=== PATIENT | female | born 1985 | race Caucasian/White ===

== ENCOUNTER → 2016-11-08 | Outpatient (CLI) | payer OTHER ==
[~2016-11-08] MED LIST: PRENTAB55 PO; VITAPRTA PO
[2016-11-08 18:15] LABS: BASO % 0.7 % (0.0-1.0); EOS # 0.2 K/mm3 (0.0-0.50); EOS % 2.6 % (0.0-3.0); LARGE UNSTAINED CELL # 0.2 K/mm3 (0.0-0.4); LYMPH # 2.7 K/mm3 (1.5-6.5); LYMPH % 33.2 % (24.0-44.0); MEAN CORPUSCULAR HEMOGLOBIN 30.7 pg (27.0-33.0); MEAN CORPUSCULAR HGB CONC 33.7 g/dl (32.0-36.5); MONO # 0.4 K/mm3 (0.0-0.8); MONO % 5.5 % (0.0-5.0); NEUTROPHILS # 4.5 K/mm3 (1.8-7.7); NEUTROPHILS % 55.1 % (36.0-66.0); PLATELET COUNT, AUTOMATED 305 k/mm3 (150-450); WHITE BLOOD COUNT 8.1 K/mm3 (4.0-10.0)
[2016-11-08 18:58] LABS: ERYTHROCYTE SEDIMENTATION RATE 5 mm/hr (0-20)
[2016-11-11 00:06] LABS: Lyme Disease IgG Ab 18 kDa Ban Absent (.); Lyme Disease IgG Ab 23 kDa Ban Absent (.); Lyme Disease IgG Ab 28 kDa Ban Absent (.); Lyme Disease IgG Ab 30 kDa Ban Absent (.); Lyme Disease IgG Ab 39 kDa Ban Absent (.); Lyme Disease IgG Ab 41 kDa Ban Absent (.); Lyme Disease IgG Ab 45 kDa Ban Absent (.); Lyme Disease IgG Ab 58 kDa Ban Absent (.); Lyme Disease IgG Ab 66 kDa Ban Absent (.); Lyme Disease IgG Ab 93 kDa Ban Absent (.); Lyme Disease IgG West Blot Int Negative (.); Lyme Disease IgG/IgM Antibodie <0.91 ISR (0.00-0.90); Lyme Disease IgM Ab 23 kDa Ban Present (.); Lyme Disease IgM Ab 39 kDa Ban Absent (.); Lyme Disease IgM Ab 41 kDa Ban Absent (.); Lyme Disease IgM Ab Quantitati 0.85 index (0.00-0.79); Lyme Disease IgM West Blot Int Negative (.)
== END ==
LOC: M WUC 12:56
PROVIDERS: ATTEND Orthopaedic Surgery
DX: M25.561 Pain in right knee (principal)

== ENCOUNTER 2016-11-27 16:11 | Emergency (ER) | payer OTHER ==
[2016-11-27] MEDS ORDERED: ALBUTEROL 90 MCG/ACT 8GM HFA INHALER As Ordered ONE (17:16)
--- NOTE | 2016-11-27 17:56 | REP ---
PA and lateral chest: Comparison is 04/24/2010. The lung neff are clear. The cardiac size is normal The justo, mediastinum, and bony thorax are unremarkable. Impression: Negative PA and lateral chest. Signed by Jan Benz MD 11/27/2016 05:47 P
--- NOTE | 2016-11-27 17:56 | EDDOCDS ---
Nurse's Notes [facility] Name: Lou Chappell Age: 31 yrs Sex: Female : 1985 Arrival Date: 11/27/2016 Time: 16:11 Bed 13 Private MD: Segundo Montes Diagnosis: Acute upper respiratory infection, unspecified Presentation: 11/27 16:27 Presenting complaint: Patient states: Congestion and productive cough for yellow/green jo3 sputum. Been ill for approximately 1 week. Adult Sepsis Screening: The patient does not have new or worsening altered mentation. Patient's respiratory rate is less than 22. Systolic blood pressure is greater than 100. Patient has a qSOFA score of 0- Negative Sepsis Screen. Suicide/Homicide risk assessment- the patient denies having any suicidal and/or homicidal ideations and does not present with any other emotional, behavioral or mental health complaints. Status: Patient is not a visitor services coordinator or dependent. Transition of care: patient was not received from another setting of care. 16:27 Acuity: HUNG Level 3 jo3 16:27 Method Of Arrival: Walkin/Carried/Asstd jo3 Triage Assessment: 16:29 General: Appears in no apparent distress, Behavior is appropriate for age, cooperative. jo3 HIV screening NA for this visit Offered previously. Neurological: No deficits noted. Level of Consciousness is awake, alert, Oriented to person, place, time. Respiratory: Airway is patent Respiratory effort is even, unlabored. Derm: Skin is pink, warm & dry. 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 none - PMHx: Chronic Back pain; Migraine Headaches; - PSHx: ; Tubal ligation; plastic surgery to right eye; - Social history: Smoking status: Patient states was never smoker of tobacco. No barriers to communication noted, The patient speaks fluent Venezuelan, Speaks appropriately for age. - Family history: Not pertinent. - : The pt / caregiver states he / she is not on anticoagulants. Home medication list is obtained from the patient. - Exposure Risk Screening:: None identified. Screenin:49 Infection Control. gr2 17:54 Screening information is obtained from the patient. Fall risk: No risks identified. dsf Assistance ADL's: requires no assistance with activities of daily living. Abuse/DV Screen: The patient / caregiver reports he/she is: not in a situation that causes fear, pain or injury. Nutritional screening: No deficits noted. Advance Directives: Currently, there is no health care proxy. home support is adequate. Assessment: 16:59 Adult Sepsis Screening: The patient does not have new or worsening altered mentation. dsf Patient's respiratory rate is less than 22. Systolic blood pressure is greater than 100. Patient has a qSOFA score of 0- Negative Sepsis Screen. General: Appears in no apparent distress, comfortable, Behavior is appropriate for age, cooperative. Pain: Denies pain. Neurological: Level of Consciousness is awake, alert, Oriented to person, place, time. EENT: Reports nasal congestion since 1 week ago. Cardiovascular: Capillary refill < 3 seconds Heart tones S1 S2 present. Respiratory: Airway is patent Respiratory effort is even, unlabored, Respiratory pattern is regular, symmetrical, Breath sounds are clear bilaterally. Reports shortness of breath on exertion since 2 days ago cough that is productive, since 3 days ago. GI: Abdomen is non- distended Bowel sounds present X 4 quads. Abd is soft and non tender X 4 quads. Derm: Skin is pink, warm & dry. 17:54 General: Appears in no apparent distress, comfortable, Behavior is appropriate for age, dsf cooperative. Pain: Denies pain. Neurological: Level of Consciousness is awake, alert. Cardiovascular: Capillary refill < 3 seconds. Respiratory: Airway is patent Respiratory effort is even, unlabored, Respiratory pattern is regular, symmetrical. Derm: Skin is pink, warm & dry. Vital Signs: 16:13 BP 129 / 85; Pulse 81; Resp 18 S; Temp 98.4(O); Pulse Ox 97% on R/A; Weight 59.87 kg gr2 (R); Height 5 ft. 0 in. (152.40 cm) (R); Pain 4/10; 17:54 BP 120 / 74; Pulse 70; Resp 16; Temp 98.6(O); Pulse Ox 99% on R/A; Pain 0/10; dsf 16:13 Body Mass Index 25.78 (59.87 kg, 152.40 cm) gr2 Vitals: 16:13 Log In Time: November 27, 2016 at 16:13. gr2 ED Course: 16:12 Patient visited by Danny Macias. gr2 16:12 Segundo Montes is Private Physician. gr2 16:12 Patient moved to Waiting gr2 16:15 Patient visited by Danny Macias. gr2 16:15 Patient moved to Pre RCE gr2 16:28 Triage Initiated jo3 16:30 Patient visited by Lay Carreno,KAVON. jo3 16:49 Patient visited by Danny Macias. gr2 16:54 Stevie Osullivan MD is Attending Physician. br1 16:54 Patient moved to 13 kr3 17:00 Patient visited by Alpa Hartman RN. dsf 17:13 Patient visited by Stevie Osullivan MD. br1 17:24 [facility] Payment Agreement was scanned into [employer] and attached to record. gb 17:47 Patient visited by Stevie Osullivan MD. br1 17:49 Segundo Montes is Referral Physician. br1 17:54 The patient / caregiver is instructed regarding the plan of care and ED course. dsf 17:54 No IV's were initiated during this patient's visit. No procedures done that require dsf assistance. Administered Medications: 17:17 Drug: Ventolin 2 puffs [Ventolin HFA 90 mcg/actuation aerosol inhaler (2 puffs)] Route: dsf Inhalation; Order Results: There are currently no results for this order. Outcome: 17:49 Discharge ordered by Provider. br1 17:54 Discharge Assessment: Patient awake, alert and oriented x 3. No cognitive and/or dsf functional deficits noted. Patient verbalized understanding of disposition instructions. patient administered narcotics - no. The following High Risk Discharge criteria are identified: None. Discharged to home ambulatory. Condition: stable. Discharge instructions given to patient, Instructed on discharge instructions, follow up and referral plans. Demonstrated understanding of instructions, Pt was receptive of discharge instructions/ teaching. No special radiology studies were completed. Property sent home with patient. 17:55 Patient left the ED. dsf Signatures: Marisol Jeong, Reg Reg gb Quita Torrez,RN RN kr3 Lay Carreno,RN RN mindy3 Stevie Osullivan MD MD br1 Alpa Hartman RN RN Danny Agrawal gr2 [place]
--- NOTE | 2016-11-27 17:56 | EDDOCDS ---
Physician Documentation [facility] Name: Lou Chappell Age: 31 yrs Sex: Female : 1985 Arrival Date: 11/27/2016 Time: 16:11 Bed 13 Private MD: Segundo Montes Disposition: 11/27/16 17:49 Discharged to Home/Self Care. Impression: Acute upper respiratory infection, unspecified. - Condition is Stable. - Discharge Instructions: Upper Respiratory Infection, Adult, Cough, Adult. - Medication Reconciliation, Local Pharmacy Hours form. - Follow up: Segundo Montes; When: 2 - 3 days; Reason: Recheck today's complaints. - Problem is new. - Symptoms have improved. - Notes: You were seen in the ED for cough, congestion and shortness of breath concerning for upper respiratory infection. Chest Xray showed no other acute findings at this time. You may use the albuterol inhaler as needed for any wheezing or shortness of breath, along with an over the counter cough suppressant such as a Robitussin as needed. Call your primary doctor to arrange to be seen in the office for recheck this week as well, and return to the ED for any chest pain, trouble breathing, fever, loss of consciousness or any other concerns. Historical: - Allergies: Augmentin (Vomit, Hives, shortness of breath); PENICILLINS (Vomit, Hives, shortness of breath); Reglan (Vomit, Hives); SULFA (SULFONAMIDES) (Vomit, Hives, shortness of breath); Toradol (Vomit, Hives, shortness of breath); - Home Meds: 1. none - PMHx: Chronic Back pain; Migraine Headaches; - PSHx: ; Tubal ligation; plastic surgery to right eye; - Social history: Smoking status: Patient states was never smoker of tobacco. No barriers to communication noted, The patient speaks fluent Khmer, Speaks appropriately for age. - Family history: Not pertinent. - : The pt / caregiver states he / she is not on anticoagulants. Home medication list is obtained from the patient. - Exposure Risk Screening:: None identified. 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 0 in. (152.40 cm) (R); Pain 4/10; 17:54 BP 120 / 74; Pulse 70; Resp 16; Temp 98.6(O); Pulse Ox 99% on R/A; Pain 0/10; dsf 16:13 Body Mass Index 25.78 (59.87 kg, 152.40 cm) gr2 MDM: 16:56 Chest, 2 View (pa\E\lat) Ordered. EDMS 17:14 Ventolin Inhaler 2 puffs Inhalation once ordered. br1 17:19 Financial registration complete. 17:24 [facility] Payment Agreement was scanned into [email or web address] and attached to record. gb Administered Medications: 17:17 Drug: Ventolin 2 puffs [Ventolin HFA 90 mcg/actuation aerosol inhaler (2 puffs)] Route: dsf Inhalation; Signatures: Dispatcher MedHost EDMS Marisol Jeong, Reg Reg Lay Carreno,RN RN jo3 Stevie Osullivan MD MD br1 Alpa Hartman RN RN dsf The chart was reviewed and I authenticate all verbal orders and agree with the evaluation and treatment provided.Attachments: 17:24 [facility] Payment Agreement gb MTDD
--- NOTE | 2016-11-29 18:57 | EDDOCDS ---
Physician Documentation [facility] Name: Lou Chappell Age: 31 yrs Sex: Female : 1985 Arrival Date: 11/27/2016 Time: 16:11 Bed 13 Private MD: Segundo Montes Disposition: 11/27/16 17:49 Discharged to Home/Self Care. Impression: Acute upper respiratory infection, unspecified. - Condition is Stable. - Discharge Instructions: Upper Respiratory Infection, Adult, Cough, Adult. - Medication Reconciliation, Local Pharmacy Hours form. - Follow up: Segundo Montes; When: 2 - 3 days; Reason: Recheck today's complaints. - Problem is new. - Symptoms have improved. - Notes: You were seen in the ED for cough, congestion and shortness of breath concerning for upper respiratory infection. Chest Xray showed no other acute findings at this time. You may use the albuterol inhaler as needed for any wheezing or shortness of breath, along with an over the counter cough suppressant such as a Robitussin as needed. Call your primary doctor to arrange to be seen in the office for recheck this week as well, and return to the ED for any chest pain, trouble breathing, fever, loss of consciousness or any other concerns. Historical: - Allergies: Augmentin (Vomit, Hives, shortness of breath); PENICILLINS (Vomit, Hives, shortness of breath); Reglan (Vomit, Hives); SULFA (SULFONAMIDES) (Vomit, Hives, shortness of breath); Toradol (Vomit, Hives, shortness of breath); - Home Meds: 1. none - PMHx: Chronic Back pain; Migraine Headaches; - PSHx: ; Tubal ligation; plastic surgery to right eye; - Social history: Smoking status: Patient states was never smoker of tobacco. No barriers to communication noted, The patient speaks fluent Turkish, Speaks appropriately for age. - Family history: Not pertinent. - : The pt / caregiver states he / she is not on anticoagulants. Home medication list is obtained from the patient. - Exposure Risk Screening:: None identified. 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 0 in. (152.40 cm) (R); Pain 4/10; 17:54 BP 120 / 74; Pulse 70; Resp 16; Temp 98.6(O); Pulse Ox 99% on R/A; Pain 0/10; dsf 16:13 Body Mass Index 25.78 (59.87 kg, 152.40 cm) gr2 MDM: 16:56 Chest, 2 View (pa\E\lat) Ordered. EDMS 17:14 Ventolin Inhaler 2 puffs Inhalation once ordered. br1 17:19 Financial registration complete. 17:24 [facility] Payment Agreement was scanned into [employer] and attached to record. gb 22:15 T-Sheet-- Draft Copy was scanned into [employer] and attached to record. klr Administered Medications: 17:17 Drug: Ventolin 2 puffs [Ventolin HFA 90 mcg/actuation aerosol inhaler (2 puffs)] Route: dsf Inhalation; Signatures: Dispatcher MedHost EDMS Marisol Jeong, Reg Reg gb Lay CarrenoRN RN Stevie Boyd MD MD br1 Alpa Hartman RN RN dsf Redder, Kathie klr The chart was reviewed and I authenticate all verbal orders and agree with the evaluation and treatment provided.Attachments: 17:24 [facility] Payment Agreement gb 22:15 T-Sheet-- Draft Copy klr Chart Complete MTDD
--- NOTE | 2016-11-29 18:57 | EDDOCDS ---
Nurse's Notes [facility] Name: Lou Chappell Age: 31 yrs Sex: Female : 1985 Arrival Date: 11/27/2016 Time: 16:11 Bed 13 Private MD: Segundo Montes Diagnosis: Acute upper respiratory infection, unspecified Presentation: 11/27 16:27 Presenting complaint: Patient states: Congestion and productive cough for yellow/green jo3 sputum. Been ill for approximately 1 week. Adult Sepsis Screening: The patient does not have new or worsening altered mentation. Patient's respiratory rate is less than 22. Systolic blood pressure is greater than 100. Patient has a qSOFA score of 0- Negative Sepsis Screen. Suicide/Homicide risk assessment- the patient denies having any suicidal and/or homicidal ideations and does not present with any other emotional, behavioral or mental health complaints. Status: Patient is not a environmental service aide or dependent. Transition of care: patient was not received from another setting of care. 16:27 Acuity: HUNG Level 3 jo3 16:27 Method Of Arrival: Walkin/Carried/Asstd jo3 Triage Assessment: 16:29 General: Appears in no apparent distress, Behavior is appropriate for age, cooperative. jo3 HIV screening NA for this visit Offered previously. Neurological: No deficits noted. Level of Consciousness is awake, alert, Oriented to person, place, time. Respiratory: Airway is patent Respiratory effort is even, unlabored. Derm: Skin is pink, warm & dry. 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 none - PMHx: Chronic Back pain; Migraine Headaches; - PSHx: ; Tubal ligation; plastic surgery to right eye; - Social history: Smoking status: Patient states was never smoker of tobacco. No barriers to communication noted, The patient speaks fluent Icelandic, Speaks appropriately for age. - Family history: Not pertinent. - : The pt / caregiver states he / she is not on anticoagulants. Home medication list is obtained from the patient. - Exposure Risk Screening:: None identified. Screenin:49 Infection Control. gr2 17:54 Screening information is obtained from the patient. Fall risk: No risks identified. dsf Assistance ADL's: requires no assistance with activities of daily living. Abuse/DV Screen: The patient / caregiver reports he/she is: not in a situation that causes fear, pain or injury. Nutritional screening: No deficits noted. Advance Directives: Currently, there is no health care proxy. home support is adequate. Assessment: 16:59 Adult Sepsis Screening: The patient does not have new or worsening altered mentation. dsf Patient's respiratory rate is less than 22. Systolic blood pressure is greater than 100. Patient has a qSOFA score of 0- Negative Sepsis Screen. General: Appears in no apparent distress, comfortable, Behavior is appropriate for age, cooperative. Pain: Denies pain. Neurological: Level of Consciousness is awake, alert, Oriented to person, place, time. EENT: Reports nasal congestion since 1 week ago. Cardiovascular: Capillary refill < 3 seconds Heart tones S1 S2 present. Respiratory: Airway is patent Respiratory effort is even, unlabored, Respiratory pattern is regular, symmetrical, Breath sounds are clear bilaterally. Reports shortness of breath on exertion since 2 days ago cough that is productive, since 3 days ago. GI: Abdomen is non- distended Bowel sounds present X 4 quads. Abd is soft and non tender X 4 quads. Derm: Skin is pink, warm & dry. 17:54 General: Appears in no apparent distress, comfortable, Behavior is appropriate for age, dsf cooperative. Pain: Denies pain. Neurological: Level of Consciousness is awake, alert. Cardiovascular: Capillary refill < 3 seconds. Respiratory: Airway is patent Respiratory effort is even, unlabored, Respiratory pattern is regular, symmetrical. Derm: Skin is pink, warm & dry. Vital Signs: 16:13 BP 129 / 85; Pulse 81; Resp 18 S; Temp 98.4(O); Pulse Ox 97% on R/A; Weight 59.87 kg gr2 (R); Height 5 ft. 0 in. (152.40 cm) (R); Pain 4/10; 17:54 BP 120 / 74; Pulse 70; Resp 16; Temp 98.6(O); Pulse Ox 99% on R/A; Pain 0/10; dsf 16:13 Body Mass Index 25.78 (59.87 kg, 152.40 cm) gr2 Vitals: 16:13 Log In Time: November 27, 2016 at 16:13. gr2 ED Course: 16:12 Patient visited by Danny Macias. gr2 16:12 Segundo Montes is Private Physician. gr2 16:12 Patient moved to Waiting gr2 16:15 Patient visited by Danny Macias. gr2 16:15 Patient moved to Pre RCE gr2 16:28 Triage Initiated jo3 16:30 Patient visited by Lay Carreno,KAVON. jo3 16:49 Patient visited by Danny Macias. gr2 16:54 Stevie Osullivan MD is Attending Physician. br1 16:54 Patient moved to 13 kr3 17:00 Patient visited by Alpa Hartman RN. dsf 17:13 Patient visited by Stevie Osullivan MD. br1 17:24 [facility] Payment Agreement was scanned into [employer] and attached to record. gb 17:47 Patient visited by Stevie Osullivan MD. br1 17:49 Segundo Montes is Referral Physician. br1 17:54 The patient / caregiver is instructed regarding the plan of care and ED course. dsf 17:54 No IV's were initiated during this patient's visit. No procedures done that require dsf assistance. 18:09 Chest, 2 View (pa\E\lat) Returned. EDMS 22:15 T-Sheet-- Draft Copy was scanned into [employer] and attached to record. klr Administered Medications: 17:17 Drug: Ventolin 2 puffs [Ventolin HFA 90 mcg/actuation aerosol inhaler (2 puffs)] Route: dsf Inhalation; Order Results: Radiology Order: Chest, 2 View (pa\E\lat) Test: Chest, 2 View (pa\E\lat) REASON FOR EXAMINATION: Cough; PA and lateral chest:; ; Comparison is 04/24/2010.; ; The lung neff are clear. The cardiac size is normal; ; The justo, mediastinum, and bony thorax are unremarkable.; ; Impression:; ; Negative PA and lateral chest.; ; ; Signed by; Jan Benz MD 11/27/2016 05:47 P; Outcome: 17:49 Discharge ordered by Provider. br1 17:54 Discharge Assessment: Patient awake, alert and oriented x 3. No cognitive and/or dsf functional deficits noted. Patient verbalized understanding of disposition instructions. patient administered narcotics - no. The following High Risk Discharge criteria are identified: None. Discharged to home ambulatory. Condition: stable. Discharge instructions given to patient, Instructed on discharge instructions, follow up and referral plans. Demonstrated understanding of instructions, Pt was receptive of discharge instructions/ teaching. No special radiology studies were completed. Property sent home with patient. 17:55 Patient left the ED. dsf Signatures: Dispatcher MedHost EDMS Marisol Jeong, Reg Reg Quita Villalpando,RN RN enoch3 Lay Carreno,RN RN mindy3 Stevie Osullivan MD MD br1 Alpa Hartman RN RN dsf Danny Macias 2 Inna Carty Chart Complete [place]
--- NOTE | 2016-11-29 18:57 | EDDOCDS ---
Physician Documentation [facility] Name: Lou Chappell Age: 31 yrs Sex: Female : 1985 Arrival Date: 11/27/2016 Time: 16:11 Bed 13 Private MD: Segundo Montes Disposition: 11/27/16 17:49 Discharged to Home/Self Care. Impression: Acute upper respiratory infection, unspecified. - Condition is Stable. - Discharge Instructions: Upper Respiratory Infection, Adult, Cough, Adult. - Medication Reconciliation, Local Pharmacy Hours form. - Follow up: Segundo Montes; When: 2 - 3 days; Reason: Recheck today's complaints. - Problem is new. - Symptoms have improved. - Notes: You were seen in the ED for cough, congestion and shortness of breath concerning for upper respiratory infection. Chest Xray showed no other acute findings at this time. You may use the albuterol inhaler as needed for any wheezing or shortness of breath, along with an over the counter cough suppressant such as a Robitussin as needed. Call your primary doctor to arrange to be seen in the office for recheck this week as well, and return to the ED for any chest pain, trouble breathing, fever, loss of consciousness or any other concerns. Historical: - Allergies: Augmentin (Vomit, Hives, shortness of breath); PENICILLINS (Vomit, Hives, shortness of breath); Reglan (Vomit, Hives); SULFA (SULFONAMIDES) (Vomit, Hives, shortness of breath); Toradol (Vomit, Hives, shortness of breath); - Home Meds: 1. none - PMHx: Chronic Back pain; Migraine Headaches; - PSHx: ; Tubal ligation; plastic surgery to right eye; - Social history: Smoking status: Patient states was never smoker of tobacco. No barriers to communication noted, The patient speaks fluent Japanese, Speaks appropriately for age. - Family history: Not pertinent. - : The pt / caregiver states he / she is not on anticoagulants. Home medication list is obtained from the patient. - Exposure Risk Screening:: None identified. 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 0 in. (152.40 cm) (R); Pain 4/10; 17:54 BP 120 / 74; Pulse 70; Resp 16; Temp 98.6(O); Pulse Ox 99% on R/A; Pain 0/10; dsf 16:13 Body Mass Index 25.78 (59.87 kg, 152.40 cm) gr2 MDM: 16:56 Chest, 2 View (pa\E\lat) Ordered. EDMS 17:14 Ventolin Inhaler 2 puffs Inhalation once ordered. br1 17:19 Financial registration complete. 17:24 [facility] Payment Agreement was scanned into [employer] and attached to record. gb 22:15 T-Sheet-- Draft Copy was scanned into [employer] and attached to record. klr Administered Medications: 17:17 Drug: Ventolin 2 puffs [Ventolin HFA 90 mcg/actuation aerosol inhaler (2 puffs)] Route: dsf Inhalation; Signatures: Dispatcher MedHost EDMS Marisol Jeong, Reg Reg gb Lay CarrenoRN RN Stevie Boyd MD MD br1 Alpa Hartman RN RN dsf Redder, Kathie klr The chart was reviewed and I authenticate all verbal orders and agree with the evaluation and treatment provided.Attachments: 17:24 [facility] Payment Agreement gb 22:15 T-Sheet-- Draft Copy klr Chart Complete MTDD
== END 2016-11-27 17:55 | disposition home or self-care (01) ==
LOC: M ED 16:11
DX: J06.9 Acute upper respiratory infection, unspecified (principal); G89.29 Other chronic pain; M54.9 Dorsalgia, unspecified; G43.909 Migraine, unspecified, not intractable, without status migrainosus; Z88.0 Allergy status to penicillin; Z88.1 Allergy status to other antibiotic agents; Z88.2 Allergy status to sulfonamides; Z88.5 Allergy status to narcotic agent

== ENCOUNTER 2016-12-11 20:03 | Emergency (ER) | payer OTHER ==
[2016-12-11] MEDS ORDERED: ONDANSETRON 4 MG ORAL DISINTEGRATING TAB (S0181) As Ordered ONE (21:07)
--- NOTE | 2016-12-11 21:59 | EDDOCDS ---
Physician Documentation [facility] Name: Lou Chappell Age: 31 yrs Sex: Female : 1985 Arrival Date: 12/11/2016 Time: 20:03 Bed Triage 1 Private MD: Wu Montes Disposition: 12/11/16 21:42 Discharged to Home/Self Care. Impression: Nausea with vomiting, unspecified, Generalized abdominal pain. - Condition is Stable. - Discharge Instructions: Abdominal Pain, Adult, Nausea and Vomiting. - Prescriptions for ZOFRAN ODT 4 mg Oral - dissolve 1 tablet by ORAL route 3-4 times daily As needed do not chew, do not swallow whole; 20 tablet. - Medication Reconciliation, Local Pharmacy Hours form. - Follow up: Emergency Department; When: As needed; Reason: Worsening of conditions. Follow up: Private Physician; When: 2 - 3 days; Reason: Wound/Symptom Recheck, Recheck today's complaints, Continuance of care. - Problem is new. - Symptoms have improved. Historical: - Allergies: Augmentin (Vomit, Hives, shortness of breath); PENICILLINS (Vomit, Hives, shortness of breath); Reglan (Vomit, Hives); SULFA (SULFONAMIDES) (Vomit, Hives, shortness of breath); Toradol (Vomit, Hives, shortness of breath); - Home Meds: 1. none - PMHx: Chronic Back pain; Migraine Headaches; - PSHx: ; Tubal ligation; plastic surgery to right eye; - Social history: Smoking status: Patient states was never smoker of tobacco. No barriers to communication noted, The patient speaks fluent Thai. - Family history: Not pertinent. - : The pt / caregiver states he / she is not on anticoagulants. Home medication list is obtained from the patient. - Exposure Risk Screening:: Recent exposure to influenza. 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 4 in. (162.56 cm) (R); Pain 8/10; 20:05 Body Mass Index 23.17 (61.23 kg, 162.56 cm) gr2 MDM: 20:54 Financial registration complete. [email or web address] 21:01 Ondansetron ODT Oral Disintegrating Tablet 4 mg PO once ordered. dt4 21:01 Fluid Challenge ordered. dt4 21:02 [facility] Payment Agreement was scanned into [employer] and attached to record. [email or web address] Administered Medications: 21:09 Drug: Ondansetron ODT 4 mg [ondansetron 4 mg disintegrating tablet (1 tabs)] Route: PO; slm 21:56 Follow up: Response: Nausea is resolved [facility] Signatures: Kim Chiang LPN CAFE MANAGER slm Dayanna Al PA-C PA-C dt4 Shashi Mcclain RN RN mb9 Rayne Singh, Reg Reg ks16 The chart was reviewed and I authenticate all verbal orders and agree with the evaluation and treatment provided.Attachments: 21:02 [facility] Payment Agreement [email or web address] MTDD
--- NOTE | 2016-12-11 21:59 | EDDOCDS ---
Nurse's Notes [facility] Name: Lou Chappell Age: 31 yrs Sex: Female : 1985 Arrival Date: 12/11/2016 Time: 20:03 Bed Triage 1 Private MD: Wu Montes Diagnosis: Nausea with vomiting, unspecified;Generalized abdominal pain Presentation: 12/11 20:15 Presenting complaint: Patient states: "I have the same thing as my son. My body aches mb9 and I have a headache and I've been vomiting.". Adult Sepsis Screening: The patient does not have new or worsening altered mentation. Patient's respiratory rate is less than 22. Systolic blood pressure is greater than 100. Patient has a qSOFA score of 0- Negative Sepsis Screen. Suicide/Homicide risk assessment- the patient denies having any suicidal and/or homicidal ideations and does not present with any other emotional, behavioral or mental health complaints. Status: Patient is not a route service manager or dependent. Transition of care: patient was not received from another setting of care. 20:15 Acuity: HUNG Level 4 mb9 20:15 Method Of Arrival: Walkin/Carried/Asstd mb9 Triage Assessment: 20:17 General: Appears in no apparent distress, Behavior is appropriate for age, cooperative. mb9 Pain: Location: body aches and headache Pain currently is 9 out of 10 on a pain scale. HIV screening NA for this visit Offered previously. Respiratory: Airway is patent Respiratory effort is even, unlabored. GI: Reports vomiting. FINANCE ADMINISTRATOR: 20:17 LMP 12/05/2016 mb9 Historical: - Allergies: Augmentin (Vomit, Hives, shortness of breath); PENICILLINS (Vomit, Hives, shortness of breath); Reglan (Vomit, Hives); SULFA (SULFONAMIDES) (Vomit, Hives, shortness of breath); Toradol (Vomit, Hives, shortness of breath); - Home Meds: 1. none - PMHx: Chronic Back pain; Migraine Headaches; - PSHx: ; Tubal ligation; plastic surgery to right eye; - Social history: Smoking status: Patient states was never smoker of tobacco. No barriers to communication noted, The patient speaks fluent Urdu. - Family history: Not pertinent. - : The pt / caregiver states he / she is not on anticoagulants. Home medication list is obtained from the patient. - Exposure Risk Screening:: Recent exposure to influenza. Screenin:05 Infection Control. gr2 21:57 Screening information is obtained from the patient. Fall risk: No risks identified. slm Assistance ADL's: requires no assistance with activities of daily living. Abuse/DV Screen: The patient / caregiver reports he/she is: not in a situation that causes fear, pain or injury. Nutritional screening: No deficits noted. Advance Directives: Currently, there is no health care proxy. There is no active DNR order. There is no living will. 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 Advance directive information has not previously been placed in an [facility] medical record. Further advance directive information is declined. home support is adequate. Assessment: 21:55 General: Appears in no apparent distress, comfortable, Behavior is cooperative. slm General: pt c/o nausea , nausea resolved with meds . Respiratory: Airway is patent Respiratory effort is even, unlabored. Vital Signs: 20:05 BP 120 / 80; Pulse 80; Resp 18 S; Temp 97.8(O); Pulse Ox 97% on R/A; Weight 61.23 kg gr2 (R); Height 5 ft. 4 in. (162.56 cm) (R); Pain 8/10; 20:05 Body Mass Index 23.17 (61.23 kg, 162.56 cm) gr2 Vitals: 20:05 Log In Time: December 11, 2016 at 20:05. gr2 ED Course: 20:04 Patient visited by Danny Macias. gr2 20:04 Patient moved to Waiting gr2 20:05 Wu Montes is Private Physician. gr2 20:07 Patient visited by Danny Macias. gr2 20:07 Patient moved to Pre RCE gr2 20:17 Triage Initiated mb9 20:41 [facility]. dt4 20:41 Jhoan Headley DO is Attending Physician. dt4 20:41 Patient visited by Dayanna Al PA-C. dt4 20:41 Patient moved to Triage 1 [facility] 21:02 [facility] Payment Agreement was scanned into [email or web address] and attached to record. [email or web address] 21:57 No IV's were initiated during this patient's visit. No procedures done that require slm assistance. 21:58 Patient visited by Kim Chiang LPN. slm 21:58 The patient / caregiver is instructed regarding the plan of care and ED course. Patient slm has correct armband on for positive identification. Bed in low position. Call light in reach. Administered Medications: 21:09 Drug: Ondansetron ODT 4 mg [ondansetron 4 mg disintegrating tablet (1 tabs)] Route: PO; slm 21:56 Follow up: Response: Nausea is resolved slm Order Results: There are currently no results for this order. Outcome: 21:42 Discharge ordered by Provider. dt4 21:56 Discharge Assessment: Patient awake, alert and oriented x 3. No cognitive and/or slm functional deficits noted. Patient verbalized understanding of disposition instructions. patient administered narcotics - no. The following High Risk Discharge criteria are identified: None. Discharged to home ambulatory. Condition: good. Discharge instructions given to patient, Instructed on discharge instructions, follow up and referral plans. medication usage, Demonstrated understanding of instructions, medications, Pt was receptive of discharge instructions/ teaching. No special radiology studies were completed. Property :Personal belongings accompany Pt. 21:58 Patient left the ED. [facility] Signatures: Danny Macias gr2 Kim Chiang LPN LPN [facility] Dayanna Al, PA-C PA-C dt4 Shashi Mcclain,RN RN mb9 Rayne Singh, Reg Reg ks16 MTDD
--- NOTE | 2016-12-13 22:59 | EDDOCDS ---
Physician Documentation [facility] Name: Lou Chappell Age: 31 yrs Sex: Female : 1985 Arrival Date: 12/11/2016 Time: 20:03 Bed Triage 1 Private MD: Wu Montes Disposition: 12/11/16 21:42 Discharged to Home/Self Care. Impression: Nausea with vomiting, unspecified, Generalized abdominal pain. - Condition is Stable. - Discharge Instructions: Abdominal Pain, Adult, Nausea and Vomiting. - Prescriptions for ZOFRAN ODT 4 mg Oral - dissolve 1 tablet by ORAL route 3-4 times daily As needed do not chew, do not swallow whole; 20 tablet. - Medication Reconciliation, Local Pharmacy Hours form. - Follow up: Emergency Department; When: As needed; Reason: Worsening of conditions. Follow up: Private Physician; When: 2 - 3 days; Reason: Wound/Symptom Recheck, Recheck today's complaints, Continuance of care. - Problem is new. - Symptoms have improved. Historical: - Allergies: Augmentin (Vomit, Hives, shortness of breath); PENICILLINS (Vomit, Hives, shortness of breath); Reglan (Vomit, Hives); SULFA (SULFONAMIDES) (Vomit, Hives, shortness of breath); Toradol (Vomit, Hives, shortness of breath); - Home Meds: 1. none - PMHx: Chronic Back pain; Migraine Headaches; - PSHx: ; Tubal ligation; plastic surgery to right eye; - Social history: Smoking status: Patient states was never smoker of tobacco. No barriers to communication noted, The patient speaks fluent Kinyarwanda. - Family history: Not pertinent. - : The pt / caregiver states he / she is not on anticoagulants. Home medication list is obtained from the patient. - Exposure Risk Screening:: Recent exposure to influenza. 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 4 in. (162.56 cm) (R); Pain 8/10; 20:05 Body Mass Index 23.17 (61.23 kg, 162.56 cm) gr2 MDM: 20:54 Financial registration complete. [email or web address] 21:01 Ondansetron ODT Oral Disintegrating Tablet 4 mg PO once ordered. dt4 21:01 Fluid Challenge ordered. dt4 21:02 [facility] Payment Agreement was scanned into [employer] and attached to record. ks16 12/12 10:42 T-Sheet-- Draft Copy was scanned into [employer] and attached to record. gb Administered Medications: 12/11 21:09 Drug: Ondansetron ODT 4 mg [ondansetron 4 mg disintegrating tablet (1 tabs)] Route: PO; sl 21:56 Follow up: Response: Nausea is resolved sl Signatures: Marisol Jeong, Reg Reg gb Kim Chiang,CAT DOG OR OTHER PET GROOMER CAT DOG OR OTHER PET GROOMER slm Dayanna Al PA-C PA-C dt4 Shashi Mcclain RN RN mb9 Rayne Singh, Reg Reg ks16 The chart was reviewed and I authenticate all verbal orders and agree with the evaluation and treatment provided.Attachments: 21:02 [facility] Payment Agreement ks16 12/12 10:42 T-Sheet-- Draft Copy gb Chart Complete MTDD
--- NOTE | 2016-12-13 22:59 | EDDOCDS ---
Nurse's Notes [facility] Name: Lou Chappell Age: 31 yrs Sex: Female : 1985 Arrival Date: 12/11/2016 Time: 20:03 Bed Triage 1 Private MD: Wu Montes Diagnosis: Nausea with vomiting, unspecified;Generalized abdominal pain Presentation: 12/11 20:15 Presenting complaint: Patient states: "I have the same thing as my son. My body aches mb9 and I have a headache and I've been vomiting.". Adult Sepsis Screening: The patient does not have new or worsening altered mentation. Patient's respiratory rate is less than 22. Systolic blood pressure is greater than 100. Patient has a qSOFA score of 0- Negative Sepsis Screen. Suicide/Homicide risk assessment- the patient denies having any suicidal and/or homicidal ideations and does not present with any other emotional, behavioral or mental health complaints. Status: Patient is not a customer service representative teacher or dependent. Transition of care: patient was not received from another setting of care. 20:15 Acuity: HUNG Level 4 mb9 20:15 Method Of Arrival: Walkin/Carried/Asstd mb9 Triage Assessment: 20:17 General: Appears in no apparent distress, Behavior is appropriate for age, cooperative. mb9 Pain: Location: body aches and headache Pain currently is 9 out of 10 on a pain scale. HIV screening NA for this visit Offered previously. Respiratory: Airway is patent Respiratory effort is even, unlabored. GI: Reports vomiting. 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 none - PMHx: Chronic Back pain; Migraine Headaches; - PSHx: ; Tubal ligation; plastic surgery to right eye; - Social history: Smoking status: Patient states was never smoker of tobacco. No barriers to communication noted, The patient speaks fluent Lao. - Family history: Not pertinent. - : The pt / caregiver states he / she is not on anticoagulants. Home medication list is obtained from the patient. - Exposure Risk Screening:: Recent exposure to influenza. Screenin:05 Infection Control. gr2 21:57 Screening information is obtained from the patient. Fall risk: No risks identified. slm Assistance ADL's: requires no assistance with activities of daily living. Abuse/DV Screen: The patient / caregiver reports he/she is: not in a situation that causes fear, pain or injury. Nutritional screening: No deficits noted. Advance Directives: Currently, there is no health care proxy. There is no active DNR order. There is no living will. There is no Power of Operations Research Scientist. Advance directive information has not previously been placed in an [facility] medical record. Further advance directive information is declined. home support is adequate. Assessment: 21:55 General: Appears in no apparent distress, comfortable, Behavior is cooperative. slm General: pt c/o nausea , nausea resolved with meds . Respiratory: Airway is patent Respiratory effort is even, unlabored. Vital Signs: 20:05 BP 120 / 80; Pulse 80; Resp 18 S; Temp 97.8(O); Pulse Ox 97% on R/A; Weight 61.23 kg gr2 (R); Height 5 ft. 4 in. (162.56 cm) (R); Pain 8/10; 20:05 Body Mass Index 23.17 (61.23 kg, 162.56 cm) gr2 Vitals: 20:05 Log In Time: December 11, 2016 at 20:05. gr2 ED Course: 20:04 Patient visited by Danny Macias. gr2 20:04 Patient moved to Waiting gr2 20:05 Wu Montes is Private Physician. gr2 20:07 Patient visited by Danny Macias. gr2 20:07 Patient moved to Pre RCE gr2 20:17 Triage Initiated mb9 20:41 Dayanna Al [facility]-C [facility]. dt4 20:41 Jhoan Headley DO is Attending Physician. dt4 20:41 Patient visited by Dayanna Al PA-C. dt4 20:41 Patient moved to Triage 1 [facility] 21:02 [facility] Payment Agreement was scanned into [employer] and attached to record. [email or web address] 21:57 No IV's were initiated during this patient's visit. No procedures done that require slm assistance. 21:58 Patient visited by Kim Chiang LPN. slm 21:58 The patient / caregiver is instructed regarding the plan of care and ED course. Patient slm has correct armband on for positive identification. Bed in low position. Call light in reach. 12/12 10:42 T-Sheet-- Draft Copy was scanned into [employer] and attached to record. gb Administered Medications: 12/11 21:09 Drug: Ondansetron ODT 4 mg [ondansetron 4 mg disintegrating tablet (1 tabs)] Route: PO; slm 21:56 Follow up: Response: Nausea is resolved slm Order Results: There are currently no results for this order. Outcome: 21:42 Discharge ordered by Provider. dt4 21:56 Discharge Assessment: Patient awake, alert and oriented x 3. No cognitive and/or slm functional deficits noted. Patient verbalized understanding of disposition instructions. patient administered narcotics - no. The following High Risk Discharge criteria are identified: None. Discharged to home ambulatory. Condition: good. Discharge instructions given to patient, Instructed on discharge instructions, follow up and referral plans. medication usage, Demonstrated understanding of instructions, medications, Pt was receptive of discharge instructions/ teaching. No special radiology studies were completed. Property :Personal belongings accompany Pt. 21:58 Patient left the ED. [facility] Signatures: Marisol Jeong, Reg Reg gb Gilberto Kevinnick gr2 Kim Chiang LPN LPN Dayanna Maurer, DREAD [place] dt4 Shashi Mcclain RN RN mb9 Rayne Singh, Reg Reg ks16 Chart Complete MTDD
--- NOTE | 2016-12-13 22:59 | EDDOCDS ---
Physician Documentation [facility] Name: Lou Chappell Age: 31 yrs Sex: Female : 1985 Arrival Date: 12/11/2016 Time: 20:03 Bed Triage 1 Private MD: Wu Montes Disposition: 12/11/16 21:42 Discharged to Home/Self Care. Impression: Nausea with vomiting, unspecified, Generalized abdominal pain. - Condition is Stable. - Discharge Instructions: Abdominal Pain, Adult, Nausea and Vomiting. - Prescriptions for ZOFRAN ODT 4 mg Oral - dissolve 1 tablet by ORAL route 3-4 times daily As needed do not chew, do not swallow whole; 20 tablet. - Medication Reconciliation, Local Pharmacy Hours form. - Follow up: Emergency Department; When: As needed; Reason: Worsening of conditions. Follow up: Private Physician; When: 2 - 3 days; Reason: Wound/Symptom Recheck, Recheck today's complaints, Continuance of care. - Problem is new. - Symptoms have improved. Historical: - Allergies: Augmentin (Vomit, Hives, shortness of breath); PENICILLINS (Vomit, Hives, shortness of breath); Reglan (Vomit, Hives); SULFA (SULFONAMIDES) (Vomit, Hives, shortness of breath); Toradol (Vomit, Hives, shortness of breath); - Home Meds: 1. none - PMHx: Chronic Back pain; Migraine Headaches; - PSHx: ; Tubal ligation; plastic surgery to right eye; - Social history: Smoking status: Patient states was never smoker of tobacco. No barriers to communication noted, The patient speaks fluent Greek. - Family history: Not pertinent. - : The pt / caregiver states he / she is not on anticoagulants. Home medication list is obtained from the patient. - Exposure Risk Screening:: Recent exposure to influenza. 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 4 in. (162.56 cm) (R); Pain 8/10; 20:05 Body Mass Index 23.17 (61.23 kg, 162.56 cm) gr2 MDM: 20:54 Financial registration complete. [email or web address] 21:01 Ondansetron ODT Oral Disintegrating Tablet 4 mg PO once ordered. dt4 21:01 Fluid Challenge ordered. dt4 21:02 [facility] Payment Agreement was scanned into [employer] and attached to record. [email or web address] 12/12 10:42 T-Sheet-- Draft Copy was scanned into [employer] and attached to record. gb Administered Medications: 12/11 21:09 Drug: Ondansetron ODT 4 mg [ondansetron 4 mg disintegrating tablet (1 tabs)] Route: PO; sl 21:56 Follow up: Response: Nausea is resolved sl Signatures: Marisol Jeong, Reg Reg gb Kim Chiang,BAGGAGEMASTER BAGGAGEMASTER slm Dayanna Al PA-C PA-C dt4 Shashi Mcclain RN RN mb9 Rayne Singh, Reg Reg ks16 The chart was reviewed and I authenticate all verbal orders and agree with the evaluation and treatment provided.Attachments: 21:02 [facility] Payment Agreement [email or web address] 12/12 10:42 T-Sheet-- Draft Copy gb Chart Complete MTDD
== END 2016-12-11 21:58 | disposition home or self-care (01) ==
LOC: M ED 20:03
DX: R11.2 Nausea with vomiting, unspecified (principal); R10.84 Generalized abdominal pain; M54.9 Dorsalgia, unspecified; G43.909 Migraine, unspecified, not intractable, without status migrainosus; Z88.1 Allergy status to other antibiotic agents; Z88.0 Allergy status to penicillin; Z88.8 Allergy status to other drugs, medicaments and biological substances; Z88.2 Allergy status to sulfonamides

== ENCOUNTER 2017-01-04 21:42 | Emergency (ER) | payer OTHER ==
[~2017-01-04] VITALS: Ht 152.4 cm; Wt 62.6 kg
[2017-01-04 21:59] VITALS: BP 129/73
[2017-01-04] MEDS ORDERED: MELO15TA4 (22:05)
== END 2017-01-05 00:37 | disposition left against medical advice (07) ==
LOC: M ED 22:42
DX: Z53.21 Procedure and treatment not carried out due to patient leaving prior to being seen by health care provider (principal)

== ENCOUNTER → 2017-02-22 | Outpatient (CLI) | payer OTHER ==
[~2017-02-22] MED LIST changes: +MELO15TA4
== END ==
LOC: M WUC 14:59
PROVIDERS: ATTEND Physician Assistant
DX: Z11.59 Encounter for screening for other viral diseases (principal)

== ENCOUNTER 2017-12-07 22:06 | Emergency (ER) | payer OTHER, SELFPAY ==
[2017-12-07] MEDS: CLINDAMYCIN 150 MG CAP PO (23:36)
== END 2017-12-07 23:40 | disposition home or self-care (01) ==
LOC: M ED 22:06
DX: J01.90 Acute sinusitis, unspecified (principal)
CPT/HCPCS: 99282

== ENCOUNTER → 2018-01-16 | Outpatient (CLI) | payer MEDICAID ==
[2018-01-16 20:06] LABS: BASO # 0.1 10^3/uL (0.0-0.2); BASO % 0.7 % (0.0-1.0); EOS # 0.4 10^3/uL (0.0-0.50); EOS % 4.3 % (0.0-3.0); HEMATOCRIT 40.5 % (36.0-47.0); HEMOGLOBIN 13.3 g/dl (12.0-16.0); IMMATURE GRANULOCYTE % 0.4 % (0-3.0); LYMPH # 3.1 10^3/uL (1.5-4.5); LYMPH % 35.7 % (24.0-44.0); MEAN CORPUSCULAR HEMOGLOBIN 29.6 pg (27.0-33.0); MEAN CORPUSCULAR HGB CONC 32.8 g/dl (32.0-36.5); MEAN CORPUSCULAR VOLUME 90.2 fl (80.0-96.0); MONO # 0.5 10^3/uL (0.0-0.8); MONO % 6.3 % (0.0-5.0); NEUTROPHILS # 4.5 10^3/uL (1.8-7.7); NEUTROPHILS % 52.6 % (36.0-66.0); PLATELET COUNT, AUTOMATED 311 10^3/uL (150-450); RED BLOOD COUNT 4.49 10^6/uL (4.00-5.40); RED CELL DISTRIBUTION WIDTH 12.2 % (11.5-14.5); WHITE BLOOD COUNT 8.6 10^3/uL (4.0-10.0)
[2018-01-16 20:10] LABS: TOTAL 25(OH) VITAMIN D 13.6 NG/ML (30.0-100.0)
[2018-01-16 20:12] LABS: ALBUMIN 3.9 GM/DL (3.2-5.2); ALBUMIN/GLOBULIN RATIO 1.08 (1.00-1.93); ALKALINE PHOSPHATASE 70 U/L (45-117); ALT/SGPT 31 U/L (12-78); ANION GAP 6 MEQ/L (8-16); AST/SGOT 18 U/L (7-37); BILIRUBIN,TOTAL 0.2 MG/DL (0.2-1.0); BLOOD UREA NITROGEN 15 MG/DL (7-18); CALCIUM LEVEL 8.6 MG/DL (8.5-10.1); CARBON DIOXIDE LEVEL 27 MEQ/L (21-32); CHLORIDE LEVEL 107 MEQ/L (98-107); CREATININE FOR GFR 0.65 MG/DL (0.55-1.30); GLOMERULAR FILTRATION RATE > 60.0 (>60); GLUCOSE, FASTING 87 MG/DL (70-100); POTASSIUM SERUM 4.1 MEQ/L (3.5-5.1); RHEUMATOID FACTOR QUANT < 10.0 IU/ML (0-15.0); SODIUM LEVEL 140 MEQ/L (136-145); THYROID STIMULATING HORMONE 0.765 uIU/ML (0.358-3.740); TOTAL PROTEIN 7.5 GM/DL (6.4-8.2)
[2018-01-16 20:33] LABS: ERYTHROCYTE SEDIMENTATION RATE 9 mm/hr (0-20)
[2018-01-18 10:14] LABS: ANTINUCLEAR ANTIBODIES DIRECT Negative (Negative)
== END ==
LOC: M WUC 17:04
DX: R51 Headache (principal)
CPT/HCPCS: 84443

== ENCOUNTER 2018-03-05 15:09 | Emergency (ER) | payer OTHER, MEDICAID ==
[2018-03-05 16:02] LABS: AMORPHOUS SEDIMENT RFX MODERATE (NEGATIVE); KETONE, URINE AUTO RFX NEGATIVE (NEGATIVE); LEUKOCYTE ESTERASE UR AUTO RFX TRACE (NEGATIVE); NITRITE, URINE AUTO RFX NEGATIVE (NEGATIVE); RBC, URINE AUTO RFX 0 /HPF (0-3); SPECIFIC GRAVITY UR AUTO RFX 1.015 (1.002-1.035); SQUAM EPITHELIAL CELL UR AURFX 1 /HPF (0-6); WBC, URINE AUTO RFX 1 /HPF (0-3)
[2018-03-05 16:50] LABS: BASO # 0.1 10^3/uL (0.0-0.2); BASO % 0.8 % (0.0-1.0); EOS # 0.3 10^3/uL (0.0-0.50); EOS % 3.3 % (0.0-3.0); HEMATOCRIT 40.9 % (36.0-47.0); HEMOGLOBIN 13.9 g/dl (12.0-15.5); IMMATURE GRANULOCYTE % 0.2 % (0-3.0); LYMPH # 3.2 10^3/uL (1.5-4.5); LYMPH % 38.6 % (24.0-44.0); MEAN CORPUSCULAR HEMOGLOBIN 30.3 pg (27.0-33.0); MEAN CORPUSCULAR VOLUME 89.1 fl (80.0-96.0); MONO # 0.5 10^3/uL (0.0-0.8); MONO % 6.3 % (0.0-5.0); NEUTROPHILS # 4.3 10^3/uL (1.8-7.7); NEUTROPHILS % 50.8 % (36.0-66.0); PLATELET COUNT, AUTOMATED 308 10^3/uL (150-450); RED BLOOD COUNT 4.59 10^6/uL (4.00-5.40); RED CELL DISTRIBUTION WIDTH 12.4 % (11.5-14.5); WHITE BLOOD COUNT 8.4 10^3/uL (4.0-10.0)
[2018-03-05 17:09] LABS: ANION GAP 7 MEQ/L (8-16); BLOOD UREA NITROGEN 14 MG/DL (7-18); CALCIUM LEVEL 8.4 MG/DL (8.5-10.1); CARBON DIOXIDE LEVEL 24 MEQ/L (21-32); CHLORIDE LEVEL 109 MEQ/L (98-107); CREATININE FOR GFR 0.72 MG/DL (0.55-1.30); GLOMERULAR FILTRATION RATE > 60.0 (>60); GLUCOSE, FASTING 95 MG/DL (70-100); POTASSIUM SERUM 4.1 MEQ/L (3.5-5.1); SODIUM LEVEL 140 MEQ/L (136-145)
== END 2018-03-05 18:02 | disposition home or self-care (01) ==
LOC: M ED 15:09
DX: N30.00 Acute cystitis without hematuria (principal); G43.909 Migraine, unspecified, not intractable, without status migrainosus; F41.9 Anxiety disorder, unspecified; F32.9 Major depressive disorder, single episode, unspecified; Z79.899 Other long term (current) drug therapy; Z88.8 Allergy status to other drugs, medicaments and biological substances; Z88.0 Allergy status to penicillin; Z88.2 Allergy status to sulfonamides
CPT/HCPCS: 74176

== ENCOUNTER 2018-04-18 12:26 | Emergency (ER) | payer OTHER | END 2018-04-18 14:15 | disposition left against medical advice (07) | LOC: M ED 12:26 | DX: Z53.29 Procedure and treatment not carried out because of patient's decision for other reasons (principal) ==

== ENCOUNTER 2018-04-20 16:37 | Emergency (ER) | payer OTHER ==
[2018-04-20] MEDS: ALBUTEROL SULFATE 2.5 MG/0.5 ML INH NEB SOLN NEB (17:47)
[2018-04-20] MEDS: dexameTHASONE 4 MG/ML 1ML VIAL (J1100) PO (17:59)
[2018-04-20] MEDS: BENZONATATE 100 MG CAP PO (17:59)
[2018-04-20] MEDS: IBUPROFEN 600 MG TAB PO (17:59)
[2018-04-20 18:06] LABS: BASO # 0.1 10^3/uL (0.0-0.2); BASO % 0.7 % (0.0-1.0); EOS # 0.8 10^3/uL (0.0-0.50); EOS % 6.2 % (0.0-3.0); HEMATOCRIT 38.8 % (36.0-47.0); IMMATURE GRANULOCYTE % 0.4 % (0-3.0); LYMPH # 3.6 10^3/uL (1.5-4.5); LYMPH % 29.7 % (24.0-44.0); MEAN CORPUSCULAR HEMOGLOBIN 30.5 pg (27.0-33.0); MEAN CORPUSCULAR HGB CONC 33.5 g/dl (32.0-36.5); MEAN CORPUSCULAR VOLUME 91.1 fl (80.0-96.0); MONO # 0.7 10^3/uL (0.0-0.8); MONO % 5.4 % (0.0-5.0); NEUTROPHILS # 6.9 10^3/uL (1.8-7.7); NEUTROPHILS % 57.6 % (36.0-66.0); PLATELET COUNT, AUTOMATED 258 10^3/uL (150-450); RED BLOOD COUNT 4.26 10^6/uL (4.00-5.40); RED CELL DISTRIBUTION WIDTH 12.6 % (11.5-14.5); WHITE BLOOD COUNT 12.1 10^3/uL (4.0-10.0)
[2018-04-20 18:15] LABS: ANION GAP 6 MEQ/L (8-16); BLOOD UREA NITROGEN 13 MG/DL (7-18); CALCIUM LEVEL 8.1 MG/DL (8.5-10.1); CARBON DIOXIDE LEVEL 25 MEQ/L (21-32); CHLORIDE LEVEL 110 MEQ/L (98-107); GLOMERULAR FILTRATION RATE > 60.0 (>60); GLUCOSE, FASTING 107 MG/DL (70-100); POTASSIUM SERUM 3.7 MEQ/L (3.5-5.1); SODIUM LEVEL 141 MEQ/L (136-145)
[2018-04-20 18:25] LABS: D-DIMER QUANT 328.7 ng/ml (<500)
== END 2018-04-20 18:54 | disposition home or self-care (01) ==
LOC: M ED 16:37
DX: J02.0 Streptococcal pharyngitis (principal); Z88.0 Allergy status to penicillin; Z88.1 Allergy status to other antibiotic agents; Z88.2 Allergy status to sulfonamides; Z88.8 Allergy status to other drugs, medicaments and biological substances
CPT/HCPCS: J1100

== ENCOUNTER 2018-04-23 16:07 | Emergency (ER) | payer OTHER | END 2018-04-23 19:55 | disposition left against medical advice (07) | LOC: M ED 16:07 | DX: Z53.21 Procedure and treatment not carried out due to patient leaving prior to being seen by health care provider (principal) ==

== ENCOUNTER 2018-05-06 13:34 | Emergency (ER) | payer OTHER | END 2018-05-06 14:55 | disposition left against medical advice (07) | LOC: M ED 13:34 | DX: Z53.21 Procedure and treatment not carried out due to patient leaving prior to being seen by health care provider (principal) ==

== ENCOUNTER → 2018-08-09 | Outpatient (CLI) | payer OTHER | LOC: M PAIN 11:00 | DX: M79.7 Fibromyalgia (principal); M54.2 Cervicalgia; G89.29 Other chronic pain; Z79.899 Other long term (current) drug therapy; Z88.0 Allergy status to penicillin; Z88.1 Allergy status to other antibiotic agents; Z88.2 Allergy status to sulfonamides; Z88.6 Allergy status to analgesic agent; Z88.8 Allergy status to other drugs, medicaments and biological substances | CPT/HCPCS: G0463 ==

== ENCOUNTER → 2018-08-10 | Outpatient (REF) | payer OTHER ==
[2018-08-10 14:17] LABS: TOTAL 25(OH) VITAMIN D 20.9 NG/ML (30.0-100.0)
== END ==
LOC: M LABNEURO 10:17
DX: E55.9 Vitamin D deficiency, unspecified (principal)

== ENCOUNTER → 2018-08-23 | Outpatient (CLI) | payer OTHER ==
[~2018-08-23] MED LIST changes: +BUPIVACAINE HCL 0.25% 30 ML VIAL As Ordered; -MELO15TA4; -PRENTAB55 PO; +TRIAMCINOLONE ACETONIDE SUSP 40 MG/ML VIAL (J3301) As Ordered; -VITAPRTA PO; +diazePAM 5 MG TAB As Ordered; +oxyCODONE 5MG TAB As Ordered
== END ==
LOC: M PAIN 10:30
DX: G89.29 Other chronic pain (principal); M79.18 Myalgia, other site; M54.2 Cervicalgia; M25.511 Pain in right shoulder; M25.512 Pain in left shoulder; M54.6 Pain in thoracic spine; Z79.899 Other long term (current) drug therapy; Z88.0 Allergy status to penicillin; Z88.1 Allergy status to other antibiotic agents; Z88.2 Allergy status to sulfonamides; Z88.8 Allergy status to other drugs, medicaments and biological substances
CPT/HCPCS: J3301

== ENCOUNTER 2018-08-30 14:05 | Outpatient (RCR) | payer OTHER | END 2018-09-05 | LOC: M PT 09-05 13:21 | DX: M54.2 Cervicalgia (principal); M79.7 Fibromyalgia | CPT/HCPCS: 97010 ==

== ENCOUNTER → 2018-09-07 | Outpatient (REF) | payer OTHER ==
[2018-09-07 17:52] LABS: APPEARANCE, URINE CLOUDY (CLEAR); BACTERIA, URINE AUTO NEGATIVE (NEGATIVE); BILIRUBIN, URINE AUTO NEGATIVE (NEGATIVE); BLOOD, URINE BLOOD 1+ (NEGATIVE); COLOR, URINE YELLOW (YELLOW); GLUCOSE, URINE (UA) AUTO NEGATIVE (NEGATIVE); KETONE, URINE AUTO NEGATIVE (NEGATIVE); LEUKOCYTE ESTERASE, URINE AUTO NEGATIVE (NEGATIVE); MUCUS, URINE SMALL (NEGATIVE); NITRITE, URINE AUTO NEGATIVE (NEGATIVE); PROTEIN, URINE AUTO NEGATIVE (NEGATIVE); RBC, URINE AUTO 0 /HPF (0-3); SPECIFIC GRAVITY URINE AUTO 1.023 (1.002-1.035); SQUAMOUS EPITHELIAL CELL UR AU 3 /HPF (0-6); UROBILINOGEN, URINE AUTO 0.2 mg/dL (0.0-2.0); WBC, URINE AUTO 3 /HPF (0-3)
== END ==
LOC: M LAB REF 17:08
DX: N39.0 Urinary tract infection, site not specified (principal)

== ENCOUNTER → 2018-09-13 | Outpatient (CLI) | payer OTHER | LOC: M PAIN 13:30 | DX: M79.7 Fibromyalgia (principal); M54.2 Cervicalgia; Z79.899 Other long term (current) drug therapy; Z88.0 Allergy status to penicillin; Z88.1 Allergy status to other antibiotic agents; Z88.2 Allergy status to sulfonamides; Z88.6 Allergy status to analgesic agent; Z88.8 Allergy status to other drugs, medicaments and biological substances | CPT/HCPCS: G0463 ==

== ENCOUNTER → 2018-09-18 | Outpatient (REF) | payer OTHER ==
[2018-09-18 16:07] LABS: APPEARANCE, URINE CLOUDY (CLEAR); BACTERIA, URINE AUTO 1+ (NEGATIVE); BILIRUBIN, URINE AUTO NEGATIVE (NEGATIVE); BLOOD, URINE BLOOD 1+ (NEGATIVE); COLOR, URINE YELLOW (YELLOW); GLUCOSE, URINE (UA) AUTO NEGATIVE (NEGATIVE); KETONE, URINE AUTO NEGATIVE (NEGATIVE); LEUKOCYTE ESTERASE, URINE AUTO TRACE (NEGATIVE); MUCUS, URINE LARGE (NEGATIVE); NITRITE, URINE AUTO NEGATIVE (NEGATIVE); PROTEIN, URINE AUTO NEGATIVE (NEGATIVE); RBC, URINE AUTO 1 /HPF (0-3); SPECIFIC GRAVITY URINE AUTO 1.024 (1.002-1.035); SQUAMOUS EPITHELIAL CELL UR AU 6 /HPF (0-6); UROBILINOGEN, URINE AUTO 0.2 mg/dL (0.0-2.0); WBC, URINE AUTO 13 /HPF (0-3)
== END ==
LOC: M LAB REF 15:43
DX: N39.0 Urinary tract infection, site not specified (principal)
CPT/HCPCS: 81001

== ENCOUNTER 2018-11-13 20:33 | Emergency (ER) | payer OTHER ==
[~2018-11-13] VITALS: Ht 152.4 cm; Wt 62.7 kg
[~2018-11-13 20:33] MED LIST changes: -BUPIVACAINE HCL 0.25% 30 ML VIAL As Ordered; +CIPR-249 PO; +CLEO300C2 PO; +CYCL10TA PO; +FLON1SPR; +FLUO20CA19 PO; +GABA-1171 PO; +MAGICMW MT; +MELO15TA28; +PRENTAB55 PO; +PROAAER10 INH; +TESS100C PO; +TOPI50TA9 PO; +TRAM50TA2 PO; -TRIAMCINOLONE ACETONIDE SUSP 40 MG/ML VIAL (J3301) As Ordered; +VITA500046 PO; +VITAPRTA PO; +ZITHTAB PO; -diazePAM 5 MG TAB As Ordered; -oxyCODONE 5MG TAB As Ordered
[2018-11-13 20:34] VITALS: BP 132/87
[2018-11-13] MEDS ORDERED: traMADol 50 MG TAB PO ONE (22:30)
[2018-11-13] MEDS ORDERED: DICL75TA PO (23:55)
--- NOTE | 2018-11-14 01:33 | REP ---
Clinical: Trauma. Fall . Technique: AP, lateral, bilateral oblique views of the left elbow. Findings: No acute fracture or dislocation is appreciated. Joint spaces and surrounding soft tissues appear normal. Lateral view demonstrates normal positioning to the anterior and posterior fat pads without evidence for effusion/hemarthrosis. No subcutaneous emphysema or foreign body identified. Impression: Normal left elbow radiographs. Electronically Signed by Kelby Rodriguez MD 11/14/2018 01:24 A
--- NOTE | 2018-11-14 01:34 | REP ---
Clinical: Trauma/fall with left shoulder pain . Technique: Internal rotation, external rotation, and Y view. Findings: No acute fracture or dislocation. The acromioclavicular and glenohumeral joints are intact. No periarticular calcifications or degenerative changes are appreciated. Sub acromial space is normal. Surrounding soft tissues are unremarkable. Impression: Normal Left shoulder radiographs. Electronically Signed by Kelby Rodriguez MD 11/14/2018 01:25 A
== END 2018-11-14 00:12 | disposition home or self-care (01) ==
LOC: M ED 20:33
DX: S70.02XA Contusion of left hip, initial encounter (principal); S46.812A Strain of other muscles, fascia and tendons at shoulder and upper arm level, left arm, initial encounter; W01.0XXA Fall on same level from slipping, tripping and stumbling without subsequent striking against object, initial encounter; Y92.89 Other specified places as the place of occurrence of the external cause; Z88.0 Allergy status to penicillin; Z88.8 Allergy status to other drugs, medicaments and biological substances; Z88.2 Allergy status to sulfonamides; Z88.5 Allergy status to narcotic agent

== ENCOUNTER → 2019-02-04 | Outpatient (CLI) | payer OTHER ==
[~2019-02-04] MED LIST changes: +DICL75TA PO
== END ==
LOC: M SMT 13:49
PROVIDERS: ATTEND Physician Assistant Medical
DX: E55.9 Vitamin D deficiency, unspecified (principal)

== ENCOUNTER → 2019-02-07 | Outpatient (CLI) | payer OTHER ==
[2019-02-07 09:36] LABS: BASO % 0.1 % (0.0-1.0); HEMATOCRIT 41.6 % (36.0-47.0); HEMOGLOBIN 13.9 g/dl (12.0-15.5); LYMPH # 2.3 10^3/uL (1.5-4.5); LYMPH % 14.1 % (24.0-44.0); MEAN CORPUSCULAR HGB CONC 33.4 g/dl (32.0-36.5); MEAN CORPUSCULAR VOLUME 89.8 fl (80.0-96.0); MONO # 0.5 10^3/uL (0.0-0.8); MONO % 3.2 % (0.0-5.0); NEUTROPHILS # 13.2 10^3/uL (1.8-7.7); NEUTROPHILS % 81.6 % (36.0-66.0); PLATELET COUNT, AUTOMATED 348 10^3/uL (150-450); RED BLOOD COUNT 4.63 10^6/uL (4.00-5.40); WHITE BLOOD COUNT 16.2 10^3/uL (4.0-10.0)
[2019-02-07 10:14] LABS: ALBUMIN 4.2 GM/DL (3.2-5.2); ALT/SGPT 48 U/L (12-78); BILIRUBIN,TOTAL 0.4 MG/DL (0.2-1.0); BLOOD UREA NITROGEN 17 MG/DL (7-18); CARBON DIOXIDE LEVEL 26 MEQ/L (21-32); CHLORIDE LEVEL 108 MEQ/L (98-107); CHOLESTEROL LEVEL 200 MG/DL (<200); CREATININE FOR GFR 0.69 MG/DL (0.55-1.30); FREE T3 2.3 PG/ML (2.2-4.0); FREE T4 1.05 NG/DL (0.76-1.46); GLOMERULAR FILTRATION RATE > 60.0 (>60); GLUCOSE, FASTING 113 MG/DL (70-100); HDL CHOLESTEROL 66 MG/DL (>40); LDL CHOLESTEROL 121 MG/DL (<100); NON-HDL-C 134 MG/DL; POTASSIUM SERUM 4.4 MEQ/L (3.5-5.1); SODIUM LEVEL 140 MEQ/L (136-145); TOTAL PROTEIN 7.7 GM/DL (6.4-8.2); TRIGLYCERIDES LEVEL 65 MG/DL (<150)
[2019-02-07 10:18] LABS: HEMOGLOBIN A1c 5.2 %
== END ==
LOC: M LAB 09:01
PROVIDERS: ATTEND Nurse Practitioner Psychiatric/Mental Health
DX: F41.1 Generalized anxiety disorder (principal); Z51.81 Encounter for therapeutic drug level monitoring; Z13.6 Encounter for screening for cardiovascular disorders; Z13.1 Encounter for screening for diabetes mellitus; E55.9 Vitamin D deficiency, unspecified; Z79.899 Other long term (current) drug therapy

== ENCOUNTER → 2019-02-26 | Outpatient (REF) | payer OTHER, MEDICAID ==
[2019-02-26 18:57] LABS: AMORPHOUS SEDIMENT SMALL (NEGATIVE); APPEARANCE, URINE TURBID (CLEAR); BACTERIA, URINE AUTO 2+ (NEGATIVE); BILIRUBIN, URINE AUTO NEGATIVE (NEGATIVE); BLOOD, URINE BLOOD NEGATIVE (NEGATIVE); COLOR, URINE YELLOW (YELLOW); GLUCOSE, URINE (UA) AUTO NEGATIVE (NEGATIVE); KETONE, URINE AUTO NEGATIVE (NEGATIVE); LEUKOCYTE ESTERASE, URINE AUTO NEGATIVE (NEGATIVE); MUCUS, URINE LARGE (NEGATIVE); NITRITE, URINE AUTO POSITIVE (NEGATIVE); PROTEIN, URINE AUTO 1+ mg/dL (NEGATIVE); RBC, URINE AUTO 0 /HPF (0-3); SPECIFIC GRAVITY URINE AUTO 1.026 (1.002-1.035); SQUAMOUS EPITHELIAL CELL UR AU 0 /HPF (0-6); WBC, URINE AUTO 0 /HPF (0-3)
[2019-02-26 20:58] LABS: CHLAMYDIA DNA AMPLIFICATION NEGATIVE (NEGATIVE); GC DNA AMPLIFICATION NEGATIVE (NEGATIVE)
== END ==
LOC: M LAB REF 16:58
PROVIDERS: ATTEND Nurse Practitioner Adult Health
DX: R39.9 Unspecified symptoms and signs involving the genitourinary system (principal)

== ENCOUNTER → 2019-03-01 | Outpatient (CLI) | payer OTHER ==
--- NOTE | 2019-03-01 15:05 | REP ---
RENAL AND BLADDER ULTRASOUND: Real-time sonographic evaluation of the kidneys is performed. Kidneys are normal in size and echo texture, right kidney measuring 10.3 x 5.0 x 4.0 cm and left kidney 10.2 x 4.8 x 4.0 cm. There is no hydronephrosis or nephrolithiasis. No renal mass is seen. Urinary bladder is not distended with a volume of 86 mL, measuring 5.4 x 7.2 x 3.4 cm. No gross mass or calculus is seen. Patient states that her bladder feels full. Only a right ureteral jet could be see with Doppler color evaluation. Postvoid residual is 12 mL which is 14% of the original volume. IMPRESSION: Unremarkable renal ultrasound. Urinary bladder is suboptimally distended even through the patient says that she feels that her bladder is full. No gross bladder abnormality. Mild postvoid residual. Electronically Signed by Jan Connell MD 03/04/2019 01:42 P
== END ==
LOC: M RAD 13:09
PROVIDERS: ATTEND Nurse Practitioner Women's Health
DX: N39.0 Urinary tract infection, site not specified (principal)

== ENCOUNTER 2019-03-09 18:45 | Emergency (ER) | payer OTHER ==
[~2019-03-09] VITALS: Ht 154.9 cm; Wt 65.8 kg
[2019-03-09 18:45] VITALS: BP 145/99
[2019-03-09] MEDS ORDERED: ADDE10CA3 (18:55)
[2019-03-09] MEDS ORDERED: BACL10TA2 (18:55)
[2019-03-09] MEDS ORDERED: CIPR500T3 (18:55)
[2019-03-09] MEDS ORDERED: GABA-843 (18:55)
[2019-03-09] MEDS ORDERED: ONDANSETRON 4MG/2ML VIAL (J2405) IV ONE (19:45)
[2019-03-09] MEDS ORDERED: NS 1,000 ML IV ONE (19:45)
[2019-03-09] MEDS ORDERED: ACETAMINOPHEN 500 MG TAB PO ONE (19:45)
[2019-03-09] MEDS ORDERED: MECLIZINE 25 MG TABLET PO ONE (19:45)
[2019-03-09] MEDS ORDERED: GASTROGRAFIN SOLUTION 30ML PO SCH (20:30)
--- NOTE | 2019-03-10 21:09 | ECGEPIP ---
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
== END 2019-03-09 21:01 | disposition left against medical advice (07) ==
LOC: M ED 18:45
DX: R42 Dizziness and giddiness (principal); M79.7 Fibromyalgia; G43.909 Migraine, unspecified, not intractable, without status migrainosus; Z79.899 Other long term (current) drug therapy; Z88.0 Allergy status to penicillin; Z88.2 Allergy status to sulfonamides; Z88.6 Allergy status to analgesic agent; Z53.21 Procedure and treatment not carried out due to patient leaving prior to being seen by health care provider

== ENCOUNTER → 2019-03-12 | Outpatient (REF) | payer OTHER ==
[~2019-03-12] MED LIST changes: +ADDE10CA3; +BACL10TA2; +CIPR500T3; +GABA-843
[2019-03-12 18:29] LABS: APPEARANCE, URINE CLOUDY (CLEAR); BACTERIA, URINE AUTO 3+ (NEGATIVE); BILIRUBIN, URINE AUTO NEGATIVE (NEGATIVE); BLOOD, URINE BLOOD NEGATIVE (NEGATIVE); COLOR, URINE YELLOW (YELLOW); GLUCOSE, URINE (UA) AUTO NEGATIVE (NEGATIVE); KETONE, URINE AUTO NEGATIVE (NEGATIVE); LEUKOCYTE ESTERASE, URINE AUTO NEGATIVE (NEGATIVE); MUCUS, URINE SMALL (NEGATIVE); NITRITE, URINE AUTO NEGATIVE (NEGATIVE); PROTEIN, URINE AUTO NEGATIVE (NEGATIVE); RBC, URINE AUTO 0 /HPF (0-3); SQUAMOUS EPITHELIAL CELL UR AU 0 /HPF (0-6); UROBILINOGEN, URINE AUTO 0.2 mg/dL (0.0-2.0); WBC, URINE AUTO 1 /HPF (0-3)
== END ==
LOC: M SMT 16:51
PROVIDERS: ATTEND Nurse Practitioner Women's Health
DX: N39.0 Urinary tract infection, site not specified (principal)

== ENCOUNTER 2019-03-26 09:51 | Emergency (ER) | payer OTHER ==
[~2019-03-26] VITALS: Ht 154.9 cm; Wt 68.4 kg
[2019-03-26] MEDS ORDERED: VITA500045 (10:00)
[2019-03-26] MEDS ORDERED: TIZA4TAB4 (10:00)
[2019-03-26] MEDS ORDERED: KETO0.02 (10:00)
[2019-03-26] MEDS ORDERED: ALL10TAB28 (10:00)
[2019-03-26] MEDS ORDERED: CEPH500C (10:00)
[2019-03-26] MEDS ORDERED: OCUF0.25 OU (11:00)
[2019-03-26 11:02] VITALS: BP 140/89
== END 2019-03-26 11:04 | disposition home or self-care (01) ==
LOC: M ED 09:51
DX: H10.33 Unspecified acute conjunctivitis, bilateral (principal); Z88.0 Allergy status to penicillin; Z88.2 Allergy status to sulfonamides; Z88.1 Allergy status to other antibiotic agents; Z79.899 Other long term (current) drug therapy

== ENCOUNTER → 2019-05-29 | Outpatient (CLI) | payer OTHER ==
[~2019-05-29] MED LIST changes: +ALL10TAB28; +CEPH500C; +KETO0.02; +OCUF0.25 OU; +TIZA4TAB4; +VITA500045
[2019-05-29 12:18] LABS: BASO # 0.1 10^3/uL (0.0-0.2); BASO % 0.8 % (0.0-1.0); EOS # 0.6 10^3/uL (0.0-0.50); EOS % 8.3 % (0.0-3.0); HEMATOCRIT 41.6 % (36.0-47.0); LYMPH # 3.4 10^3/uL (1.5-4.5); LYMPH % 47.1 % (24.0-44.0); MEAN CORPUSCULAR HEMOGLOBIN 31.5 pg (27.0-33.0); MEAN CORPUSCULAR HGB CONC 33.7 g/dl (32.0-36.5); MEAN CORPUSCULAR VOLUME 93.5 fl (80.0-96.0); MONO # 0.5 10^3/uL (0.0-0.8); MONO % 7.5 % (0.0-5.0); NEUTROPHILS # 2.6 10^3/uL (1.8-7.7); PLATELET COUNT, AUTOMATED 319 10^3/uL (150-450); RED BLOOD COUNT 4.45 10^6/uL (4.00-5.40); WHITE BLOOD COUNT 7.2 10^3/uL (4.0-10.0)
[2019-05-29 12:31] LABS: ALBUMIN 3.7 GM/DL (3.2-5.2); ALT/SGPT 20 U/L (12-78); BILIRUBIN,TOTAL 0.4 MG/DL (0.2-1.0); BLOOD UREA NITROGEN 15 MG/DL (7-18); CALCIUM LEVEL 8.7 MG/DL (8.5-10.1); CARBON DIOXIDE LEVEL 29 MEQ/L (21-32); CHLORIDE LEVEL 107 MEQ/L (98-107); CHOLESTEROL LEVEL 166 MG/DL (<200); CHOLESTEROL RISK RATIO 3.531 (<5); CREATININE FOR GFR 0.72 MG/DL (0.55-1.30); FREE T4 1.01 NG/DL (0.76-1.46); GLOMERULAR FILTRATION RATE > 60.0 (>60); GLUCOSE, FASTING 95 MG/DL (70-100); HDL CHOLESTEROL 47 MG/DL (>40); LDL CHOLESTEROL 85 MG/DL (<100); NON-HDL-C 119 MG/DL; POTASSIUM SERUM 4.7 MEQ/L (3.5-5.1); SODIUM LEVEL 140 MEQ/L (136-145); TRIGLYCERIDES LEVEL 170 MG/DL (<150)
[2019-05-29 12:36] LABS: HEMOGLOBIN A1c 5.4 %
== END ==
LOC: M SMT 09:30
PROVIDERS: ATTEND Nurse Practitioner Family
DX: Z00.00 Encounter for general adult medical examination without abnormal findings (principal); I10 Essential (primary) hypertension

== ENCOUNTER → 2019-05-29 | Outpatient (CLI) | payer OTHER | LOC: M SMT 09:33 | PROVIDERS: ATTEND Physician Assistant Medical | DX: E55.9 Vitamin D deficiency, unspecified (principal) ==

== ENCOUNTER → 2020-02-07 | Outpatient (REF) | payer OTHER ==
[~2020-02-07] MED LIST changes: -ALL10TAB28; +ALL10TAB29; -FLUO20CA19 PO; +FLUO20CA22 PO
== END ==
LOC: M LAB REF 18:41
PROVIDERS: ATTEND Nurse Practitioner Family
DX: Z03.818 Encounter for observation for suspected exposure to other biological agents ruled out (principal)
CPT/HCPCS: 87798; U0002

== ENCOUNTER → 2020-03-04 | Outpatient (REF) | payer OTHER ==
[~2020-03-04] MED LIST changes: +CYCL-707 PO; -CYCL10TA PO
[2020-03-04 13:52] LABS: APPEARANCE, URINE HAZY (CLEAR); BACTERIA, URINE AUTO 2+ (NEGATIVE); BILIRUBIN, URINE AUTO NEGATIVE (NEGATIVE); BLOOD, URINE BLOOD NEGATIVE (NEGATIVE); COLOR, URINE AMBER (YELLOW); GLUCOSE, URINE (UA) AUTO NEGATIVE (NEGATIVE); KETONE, URINE AUTO NEGATIVE (NEGATIVE); LEUKOCYTE ESTERASE, URINE AUTO NEGATIVE (NEGATIVE); MUCUS, URINE SMALL (NEGATIVE); NITRITE, URINE AUTO POSITIVE (NEGATIVE); PROTEIN, URINE AUTO NEGATIVE (NEGATIVE); RBC, URINE AUTO 0 /HPF (0-3); SQUAMOUS EPITHELIAL CELL UR AU 4 /HPF (0-6); UROBILINOGEN, URINE AUTO 0.2 mg/dL (0.0-2.0); WBC, URINE AUTO 1 /HPF (0-3)
== END ==
LOC: M LAB REF 12:41
PROVIDERS: ATTEND Physician Assistant
DX: N39.0 Urinary tract infection, site not specified (principal)

== ENCOUNTER 2021-03-31 19:18 | Emergency (ER) | payer OTHER ==
[~2021-03-31] VITALS: Ht 157.5 cm; Wt 68.6 kg
[2021-03-31 19:18] VITALS: BP 137/90
[~2021-03-31 19:18] MED LIST changes: -ALL10TAB29; +CETI-24; +GABA-282; -GABA-843
== END 2021-03-31 21:57 | disposition left against medical advice (07) ==
LOC: M ED 19:18
DX: Z53.21 Procedure and treatment not carried out due to patient leaving prior to being seen by health care provider (principal)

== ENCOUNTER → 2021-06-12 | Outpatient (REF) | payer OTHER ==
[2021-06-12 17:28] LABS: AMORPHOUS SEDIMENT SMALL (NEGATIVE); APPEARANCE, URINE TURBID (CLEAR); BACTERIA, URINE AUTO NEGATIVE (NEGATIVE); BILIRUBIN, URINE AUTO NEGATIVE (NEGATIVE); BLOOD, URINE BLOOD 2+ (NEGATIVE); COLOR, URINE YELLOW (YELLOW); GLUCOSE, URINE (UA) AUTO NEGATIVE (NEGATIVE); KETONE, URINE AUTO NEGATIVE (NEGATIVE); LEUKOCYTE ESTERASE, URINE AUTO NEGATIVE (NEGATIVE); MUCUS, URINE SMALL (NEGATIVE); NITRITE, URINE AUTO NEGATIVE (NEGATIVE); PROTEIN, URINE AUTO NEGATIVE (NEGATIVE); RBC, URINE AUTO 2 /HPF (0-3); SPECIFIC GRAVITY URINE AUTO 1.016 (1.002-1.035); SQUAMOUS EPITHELIAL CELL UR AU 4 /HPF (0-6); UROBILINOGEN, URINE AUTO 0.2 mg/dL (0.0-2.0); WBC, URINE AUTO 2 /HPF (0-3)
[2021-06-12 18:47] LABS: GC DNA AMPLIFICATION NEGATIVE (NEGATIVE)
== END ==
LOC: M LAB REF 17:09
PROVIDERS: ATTEND Physician Assistant Medical
DX: R30.0 Dysuria (principal)

== ENCOUNTER → 2021-09-16 | Outpatient (REF) | payer OTHER ==
[2021-09-16 15:51] LABS: APPEARANCE, URINE CLOUDY (CLEAR); BACTERIA, URINE AUTO 3+ (NEGATIVE); BILIRUBIN, URINE AUTO NEGATIVE (NEGATIVE); BLOOD, URINE BLOOD NEGATIVE (NEGATIVE); COLOR, URINE YELLOW (YELLOW); GLUCOSE, URINE (UA) AUTO NEGATIVE (NEGATIVE); KETONE, URINE AUTO NEGATIVE (NEGATIVE); LEUKOCYTE ESTERASE, URINE AUTO NEGATIVE (NEGATIVE); MUCUS, URINE LARGE (NEGATIVE); NITRITE, URINE AUTO NEGATIVE (NEGATIVE); PROTEIN, URINE AUTO NEGATIVE (NEGATIVE); RBC, URINE AUTO 1 /HPF (0-3); SPECIFIC GRAVITY URINE AUTO 1.025 (1.002-1.035); SQUAMOUS EPITHELIAL CELL UR AU 4 /HPF (0-6); UROBILINOGEN, URINE AUTO 0.2 mg/dL (0.0-2.0); WBC, URINE AUTO 2 /HPF (0-3)
[2021-09-16 16:41] LABS: GC DNA AMPLIFICATION NEGATIVE (NEGATIVE)
== END ==
LOC: M LAB REF 12:42
PROVIDERS: ATTEND Physician Assistant
DX: R30.0 Dysuria (principal)

== ENCOUNTER → 2022-01-06 | Outpatient (CLI) | payer OTHER ==
[~2022-01-06] MED LIST changes: +TIZA10TA; -TIZA4TAB4
[2022-01-06 14:41] LABS: BASO # 0.1 10^3/uL (0.0-0.2); BASO % 0.8 % (0.0-1.0); EOS # 0.4 10^3/uL (0.0-0.5); EOS % 4.2 % (0.0-3.0); HEMATOCRIT 41.7 % (36.0-47.0); HEMOGLOBIN 13.5 g/dl (12.0-15.5); LYMPH # 3.7 10^3/uL (1.5-5.0); LYMPH % 34.7 % (24.0-44.0); MEAN CORPUSCULAR HEMOGLOBIN 30.1 pg (27.0-33.0); MEAN CORPUSCULAR HGB CONC 32.4 g/dl (32.0-36.5); MEAN CORPUSCULAR VOLUME 92.9 fl (80.0-96.0); MONO # 0.7 10^3/uL (0.0-0.8); MONO % 6.9 % (2.0-8.0); NEUTROPHILS # 5.5 10^3/uL (1.5-8.5); NEUTROPHILS % 51.7 % (36.0-66.0); PLATELET COUNT, AUTOMATED 236 10^3/uL (150-450); RED BLOOD COUNT 4.49 10^6/uL (4.00-5.40); WHITE BLOOD COUNT 10.6 10^3/uL (4.0-10.0)
[2022-01-06 14:53] LABS: INR 0.93; PARTIAL THROMBOPLASTIN TIME 25.1 SECONDS (25.9-37.0); PROTHROMBIN TIME 12.9 SECONDS (12.7-14.5)
[2022-01-06 15:09] LABS: BLOOD UREA NITROGEN 18 MG/DL (7-18); CALCIUM LEVEL 8.7 MG/DL (8.5-10.1); CARBON DIOXIDE LEVEL 26 MEQ/L (21-32); CHLORIDE LEVEL 108 MEQ/L (98-107); GLOMERULAR FILTRATION RATE > 60.0 (>60); GLUCOSE, FASTING 81 MG/DL (70-100); SODIUM LEVEL 139 MEQ/L (136-145)
[2022-01-06 15:10] LABS: ALBUMIN 3.6 GM/DL (3.2-5.2); ALT/SGPT 42 U/L (12-78); BILIRUBIN,TOTAL 0.3 MG/DL (0.2-1.0); TOTAL PROTEIN 7.1 GM/DL (6.4-8.2)
[2022-01-06 15:13] LABS: HCG, SERUM QUALITATIVE NEGATIVE (NEGATIVE)
== END ==
LOC: M EKG 13:52
DX: Z01.818 Encounter for other preprocedural examination (principal)

== ENCOUNTER 2022-05-09 20:39 | Emergency (ER) | payer OTHER ==
[~2022-05-09] VITALS: Ht 152.4 cm; Wt 66.0 kg
[2022-05-09 20:39] VITALS: BP 150/80
[2022-05-09] MEDS ORDERED: FLUORESCEIN OPHTH 1 MG STRIP OD ONE (21:30)
[2022-05-09] MEDS ORDERED: PROPARACAINE 0.5% OPHTH SOL 15ML OD ONE (21:30)
[2022-05-09] MEDS ORDERED: CIPR0.3S6 OD (22:58)
[2022-05-09] MEDS ORDERED: CIPROFLOXACIN 0.3% OPHTH SOLN 2.5ML OD ONE (23:25)
[2022-05-09] MEDS ORDERED: CIPROFLOXACIN 0.3% OPHTH OINTMENT OD ONE (23:25)
== END 2022-05-09 23:44 | disposition home or self-care (01) ==
LOC: M ED 20:39
DX: S05.01XA Injury of conjunctiva and corneal abrasion without foreign body, right eye, initial encounter (principal); X58.XXXA Exposure to other specified factors, initial encounter; Y92.89 Other specified places as the place of occurrence of the external cause; H10.89 Other conjunctivitis; Z88.0 Allergy status to penicillin; Z88.1 Allergy status to other antibiotic agents; Z88.2 Allergy status to sulfonamides; Z88.8 Allergy status to other drugs, medicaments and biological substances

== ENCOUNTER → 2022-11-02 | Outpatient (REF) | payer OTHER ==
[~2022-11-02] MED LIST changes: +CIPR0.3S6 OD
== END ==
LOC: M LAB REF 11:44
PROVIDERS: ATTEND Physician Assistant
DX: R30.0 Dysuria (principal)

== ENCOUNTER → 2022-12-08 | Outpatient (REF) | payer OTHER ==
[2022-12-08 17:36] LABS: BASO # 0.1 10^3/uL (0.0-0.2); BASO % 0.8 % (0.0-1.0); EOS # 0.2 10^3/uL (0.0-0.5); HEMATOCRIT 37.7 % (36.0-47.0); HEMOGLOBIN 12.5 g/dl (12.0-15.5); LYMPH # 3.3 10^3/uL (1.5-5.0); LYMPH % 44.5 % (24.0-44.0); MEAN CORPUSCULAR HEMOGLOBIN 30.3 pg (27.0-33.0); MEAN CORPUSCULAR HGB CONC 33.2 g/dl (32.0-36.5); MEAN CORPUSCULAR VOLUME 91.5 fl (80.0-96.0); MONO # 0.5 10^3/uL (0.0-0.8); MONO % 6.3 % (2.0-8.0); NEUTROPHILS # 3.4 10^3/uL (1.5-8.5); NEUTROPHILS % 45.1 % (36.0-66.0); PLATELET COUNT, AUTOMATED 292 10^3/uL (150-450); RED BLOOD COUNT 4.12 10^6/uL (4.00-5.40); WHITE BLOOD COUNT 7.4 10^3/uL (4.0-10.0)
[2022-12-08 21:34] LABS: HEMOGLOBIN A1c 4.8 % (4.0-6.0)
[2022-12-08 22:56] LABS: THYROID STIMULATING HORMONE 1.013 uIU/ML (0.55-4.78)
[2022-12-09 00:04] LABS: ALBUMIN 3.8 G/DL (3.2-5.2); ALKALINE PHOSPHATASE 57 U/L (46-116); ALT/SGPT 19 U/L (7.0-40); AST/SGOT 17 U/L (<34); BILIRUBIN,TOTAL 0.2 MG/DL (0.3-1.2); BLOOD UREA NITROGEN 17 MG/DL (9-23); CALCIUM LEVEL 8.7 MG/DL (8.5-10.1); CARBON DIOXIDE LEVEL 24 MMOL/L (20-31); CHLORIDE LEVEL 106 MMOL/L (98-107); CHOLESTEROL LEVEL 160 MG/DL (<200); CHOLESTEROL RISK RATIO 4.25 (<5); CREATININE FOR GFR 0.68 MG/DL (0.55-1.30); GLOMERULAR FILTRATION RATE > 60.0 (>60); GLUCOSE, FASTING 111 MG/DL (60-100); HDL CHOLESTEROL 37.6 MG/DL (>40); LDL CHOLESTEROL 69.2 MG/DL (<100); NON-HDL-C 122 MG/DL; POTASSIUM SERUM 4.1 MMOL/L (3.5-5.1); SODIUM LEVEL 138 MMOL/L (136-145); TRIGLYCERIDES LEVEL 266 MG/DL (<150)
== END ==
LOC: M LAB REF 16:37
PROVIDERS: ATTEND Nurse Practitioner Family
DX: Z13.228 Encounter for screening for other metabolic disorders (principal)

== ENCOUNTER → 2023-03-03 | Outpatient (CLI) | payer OTHER ==
[~2023-03-03] MED LIST changes: +CIPR0.3S37 OD; -CIPR0.3S6 OD; -KETO0.02; +KETO5DRO33; +TOPI-254 PO; -TOPI50TA9 PO
== END ==
LOC: M PLARAD 08:39
PROVIDERS: ATTEND Student in an Organized Health Care Education/Training Program
DX: M50.221 Other cervical disc displacement at C4-C5 level (principal); M50.222 Other cervical disc displacement at C5-C6 level; M50.223 Other cervical disc displacement at C6-C7 level; G43.119 Migraine with aura, intractable, without status migrainosus; G44.209 Tension-type headache, unspecified, not intractable

== ENCOUNTER 2023-04-07 17:04 | Emergency (ER) | payer OTHER ==
[~2023-04-07] VITALS: Ht 154.9 cm; Wt 66.4 kg
[2023-04-07 17:56] LABS: BASO # 0.1 10^3/uL (0.0-0.2); BASO % 0.7 % (0.0-1.0); EOS # 0.1 10^3/uL (0.0-0.5); EOS % 1.5 % (0.0-3.0); HEMATOCRIT 38.9 % (36.0-47.0); HEMOGLOBIN 13.3 g/dl (12.0-15.5); LYMPH # 3.6 10^3/uL (1.5-5.0); LYMPH % 38.5 % (24.0-44.0); MEAN CORPUSCULAR HEMOGLOBIN 30.7 pg (27.0-33.0); MEAN CORPUSCULAR HGB CONC 34.2 g/dl (32.0-36.5); MEAN CORPUSCULAR VOLUME 89.8 fl (80.0-96.0); MONO # 0.6 10^3/uL (0.0-0.8); MONO % 6.7 % (2.0-8.0); NEUTROPHILS # 4.9 10^3/uL (1.5-8.5); NEUTROPHILS % 52.3 % (36.0-66.0); PLATELET COUNT, AUTOMATED 328 10^3/uL (150-450); RED BLOOD COUNT 4.33 10^6/uL (4.00-5.40); WHITE BLOOD COUNT 9.3 10^3/uL (4.0-10.0)
[2023-04-07 18:00] LABS: LIPASE 33 U/L (12-53)
[2023-04-07 18:05] LABS: ALBUMIN 3.9 G/DL (3.2-5.2); ALKALINE PHOSPHATASE 57 U/L (46-116); ALT/SGPT 12 U/L (7.0-40); AST/SGOT < 8 U/L (<34); BILIRUBIN,DIRECT 0.1 MG/DL (<0.4); BILIRUBIN,TOTAL 0.4 MG/DL (0.3-1.2); BLOOD UREA NITROGEN 15 MG/DL (9-23); CALCIUM LEVEL 8.4 MG/DL (8.5-10.1); CARBON DIOXIDE LEVEL 23 MMOL/L (20-31); CHLORIDE LEVEL 107 MMOL/L (98-107); CK-MB VALUE MASS < 1.0 NG/ML (<3.6); CREATININE FOR GFR 0.65 MG/DL (0.55-1.30); GLOMERULAR FILTRATION RATE > 60.0 (>60); GLUCOSE, FASTING 97 MG/DL (60-100); POTASSIUM SERUM 3.4 MMOL/L (3.5-5.1); SODIUM LEVEL 141 MMOL/L (136-145); TOTAL PROTEIN 6.8 G/DL (5.7-8.2)
[2023-04-07 18:44] LABS: CPK CREATINE PHOSPHOKINASE 36 U/L (34-145); MB/CK RELATIVE INDEX 2.77 (< OR =4); THYROID STIMULATING HORMONE 0.837 uIU/ML (0.55-4.78)
[2023-04-07 19:00] VITALS: BP 152/88
[2023-04-07 19:08] LABS: CK-MB VALUE MASS < 1.0 NG/ML (<3.6)
[2023-04-07 19:13] LABS: CPK CREATINE PHOSPHOKINASE 36 U/L (34-145); MB/CK RELATIVE INDEX 2.77 (< OR =4)
[2023-04-07] MEDS ORDERED: METOCLOPRAMIDE INJ 10MG/2ML VIAL IV ONE (19:30)
[2023-04-07] MEDS ORDERED: NS 1,000 ML IV ONE (19:30)
[2023-04-07] MEDS ORDERED: ISOVUE-370 76% 100ML VIAL As Ordered ONE (20:06)
[2023-04-07 20:24] LABS: MAGNESIUM LEVEL 1.7 MG/DL (1.8-2.4)
[2023-04-07] MEDS ORDERED: MAGNESIUM OXIDE 400MG TAB (MAG-OX) PO ONE (20:50)
== END 2023-04-07 21:38 | disposition home or self-care (01) ==
LOC: M ED 17:04
DX: R07.89 Other chest pain (principal); E86.0 Dehydration; E83.42 Hypomagnesemia; M79.7 Fibromyalgia; F41.9 Anxiety disorder, unspecified; Z88.0 Allergy status to penicillin; Z88.2 Allergy status to sulfonamides; Z88.8 Allergy status to other drugs, medicaments and biological substances
CPT/HCPCS: 71045; 71275; 80048; 80076; 82550; 82553; 83690; 83735; 84443; 85025; 93005; 93041; 94760; 96374; 99284; J2765; Q9967

== ENCOUNTER → 2023-04-10 | Outpatient (REF) | payer OTHER ==
[2023-04-10 14:15] LABS: APPEARANCE, URINE HAZY (CLEAR); BACTERIA, URINE AUTO 1+ (NEGATIVE); BILIRUBIN, URINE AUTO NEGATIVE (NEGATIVE); BLOOD, URINE BLOOD NEGATIVE (NEGATIVE); COLOR, URINE YELLOW (YELLOW); GLUCOSE, URINE (UA) AUTO NEGATIVE (NEGATIVE); KETONE, URINE AUTO NEGATIVE (NEGATIVE); LEUKOCYTE ESTERASE, URINE AUTO NEGATIVE (NEGATIVE); MUCUS, URINE SMALL (NEGATIVE); NITRITE, URINE AUTO NEGATIVE (NEGATIVE); PROTEIN, URINE AUTO NEGATIVE (NEGATIVE); RBC, URINE AUTO 0 /HPF (0-3); SPECIFIC GRAVITY URINE AUTO 1.019 (1.002-1.035); SQUAMOUS EPITHELIAL CELL UR AU 1 /HPF (0-6); UROBILINOGEN, URINE AUTO 0.2 mg/dL (0.0-2.0); WBC, URINE AUTO 1 /HPF (0-3)
== END ==
LOC: M LAB REF 12:44
PROVIDERS: ATTEND Physician Assistant Medical
DX: N39.0 Urinary tract infection, site not specified (principal)

== ENCOUNTER → 2023-11-29 | Outpatient (CLI) | payer MEDICAID, OTHER ==
[~2023-11-29] MED LIST changes: +TOPI-21 PO; -TOPI-254 PO
== END ==
LOC: M RAD 11:00
PROVIDERS: ATTEND Physician Assistant
DX: L72.0 Epidermal cyst (principal)

== ENCOUNTER → 2023-12-14 | Outpatient (REF) | payer MEDICAID ==
[2023-12-14 22:56] LABS: APPEARANCE, URINE HAZY (CLEAR); BACTERIA, URINE AUTO NEGATIVE (NEGATIVE); BILIRUBIN, URINE AUTO NEGATIVE (NEGATIVE); BLOOD, URINE BLOOD NEGATIVE (NEGATIVE); COLOR, URINE AMBER (YELLOW); GLUCOSE, URINE (UA) AUTO NEGATIVE (NEGATIVE); KETONE, URINE AUTO NEGATIVE (NEGATIVE); LEUKOCYTE ESTERASE, URINE AUTO NEGATIVE (NEGATIVE); MUCUS, URINE SMALL (NEGATIVE); NITRITE, URINE AUTO NEGATIVE (NEGATIVE); PROTEIN, URINE AUTO NEGATIVE (NEGATIVE); RBC, URINE AUTO 1 /HPF (0-3); SPECIFIC GRAVITY URINE AUTO 1.024 (1.002-1.035); SQUAMOUS EPITHELIAL CELL UR AU 2 /HPF (0-6); WBC, URINE AUTO 1 /HPF (0-3)
== END ==
LOC: M LAB REF 22:39
PROVIDERS: ATTEND Physician Assistant Medical
DX: N39.0 Urinary tract infection, site not specified (principal)

== ENCOUNTER → 2024-02-28 | Outpatient (CLI) | payer OTHER ==
[2024-02-28 16:05] LABS: HEMATOCRIT 38.5 % (36.0-47.0); HEMOGLOBIN 13.2 g/dl (12.0-15.5); MEAN CORPUSCULAR HEMOGLOBIN 31.1 pg (27.0-33.0); MEAN CORPUSCULAR HGB CONC 34.3 g/dl (32.0-36.5); MEAN CORPUSCULAR VOLUME 90.8 fl (80.0-96.0); PLATELET COUNT, AUTOMATED 304 10^3/uL (150-450); RED BLOOD COUNT 4.24 10^6/uL (4.00-5.40); WHITE BLOOD COUNT 8.3 10^3/uL (4.0-10.0)
[2024-02-28 16:27] LABS: BLOOD UREA NITROGEN 14 MG/DL (9-23); CARBON DIOXIDE LEVEL 27 MMOL/L (20-31); CHLORIDE LEVEL 103 MMOL/L (98-107); CREATININE FOR GFR 0.69 MG/DL (0.55-1.30); GLOMERULAR FILTRATION RATE > 60.0 (>60); GLUCOSE, FASTING 96 MG/DL (60-100); POTASSIUM SERUM 3.9 MMOL/L (3.5-5.1); SODIUM LEVEL 138 MMOL/L (136-145)
== END ==
LOC: M LAB 15:19
PROVIDERS: ATTEND Plastic Surgery Surgery of the Hand
DX: L72.0 Epidermal cyst (principal)

== ENCOUNTER 2024-03-05 06:08 | Day surgery (SDC) | payer OTHER ==
[~2024-03-05] VITALS: Ht 154.9 cm; Wt 66.3 kg
[2024-03-05] MEDS: LR 1,000 ML IV SCH (06:59)
[2024-03-05] MEDS ORDERED: CLINDAMYCIN 900 MG in IV 1 EA IV ONE (07:00)
[2024-03-05] MEDS ORDERED: dexmedeTOMIDine (4MCG/ML)200MCG/50ML BTL (PRECEDEX) As Ordered ONE (07:05)
[2024-03-05] MEDS ORDERED: ROCURONIUM BROMIDE 50MG/5ML VIAL As Ordered ONE (07:05)
[2024-03-05] MEDS ORDERED: SUGAMMADEX SODIUM 500 MG/5 ML VIAL (BRIDION) As Ordered ONE (07:05)
[2024-03-05] MEDS ORDERED: ONDANSETRON 4MG 2ML VIAL As Ordered ONE (07:05)
[2024-03-05] MEDS ORDERED: propofoL 200 MG/20 ML VIAL As Ordered ONE (07:05)
[2024-03-05] MEDS ORDERED: MIDAZOLAM INJ 2MG/2ML VIAL As Ordered ONE (07:05)
[2024-03-05] MEDS ORDERED: LIDOCAINE 2% 100MG/5ML SDV (FOR ANES.) As Ordered ONE (07:05)
[2024-03-05] MEDS ORDERED: fentaNYL 100 MCG/2 ML INJECTION As Ordered ONE (07:05)
[2024-03-05] MEDS ORDERED: PHENYLephrine 500MCG 5ML (100MCG/ML) SYRINGE As Ordered ONE (07:06)
[2024-03-05] MEDS ORDERED: ePHEDrine SULFATE 25 MG/5 ML(5MG/ML) SYRINGE As Ordered ONE (07:06)
[2024-03-05] MEDS ORDERED: KETAMINE HCL 200MG/20ML VIAL As Ordered ONE (07:31)
[2024-03-05] MEDS ORDERED: ACETAMINOPHEN 1000MG 100ML IV BAG As Ordered ONE (08:01)
[2024-03-05] MEDS: LIDOCAINE W/EPINEPHRINE 1% 20ML VIAL As Ordered ONE (08:29)
[2024-03-05] MEDS ORDERED: CLIN75CA2 PO (08:59)
[2024-03-05 09:17] VITALS: BP 143/87; TEMP 97.2; O2SAT 98
== END 2024-03-05 09:20 | disposition home or self-care (01) ==
LOC: M SDC 06:08
PROVIDERS: ATTEND Plastic Surgery Surgery of the Hand
DX: L72.0 Epidermal cyst (principal); Z88.0 Allergy status to penicillin; Z88.8 Allergy status to other drugs, medicaments and biological substances; Z88.2 Allergy status to sulfonamides
CPT/HCPCS: 11404; 88304; J0131; J1100; J2250; J2371; J2405; J3010

== ENCOUNTER → 2024-09-24 | Outpatient (REF) | payer OTHER ==
[~2024-09-24] MED LIST changes: +CLIN75CA2 PO; +FLUO-365 PO; -FLUO20CA22 PO; +GABA-1172; -GABA-282
== END ==
LOC: M LAB REF 18:02
PROVIDERS: ATTEND Plastic Surgery Surgery of the Hand
DX: L98.0 Pyogenic granuloma (principal)

== ENCOUNTER → 2024-11-07 | Outpatient (REF) | payer OTHER ==
[2024-11-07 18:41] LABS: CHOLESTEROL RISK RATIO 3.8 (<5); HDL CHOLESTEROL 53.6 MG/DL (>40); LDL CHOLESTEROL 122.4 MG/DL (<100); NON-HDL-C 150.4 MG/DL
== END ==
LOC: M LAB REF 16:27
PROVIDERS: ATTEND Nurse Practitioner Family
DX: R79.89 Other specified abnormal findings of blood chemistry (principal)

== ENCOUNTER → 2024-11-21 | Outpatient (REF) | payer OTHER ==
[2024-11-21 18:37] LABS: FERRITIN 21.9 NG/ML (7.3-270.7)
[2024-11-21 18:40] LABS: PERCENT SATURATION 19.2 % (13.2-45.0)
== END ==
LOC: M LAB REF 16:38
PROVIDERS: ATTEND Nurse Practitioner Family
DX: Z86.39 Personal history of other endocrine, nutritional and metabolic disease (principal)

== ENCOUNTER 2025-01-29 17:49 | Emergency (ER) | payer OTHER ==
[~2025-01-29] VITALS: Ht 154.9 cm; Wt 66.8 kg
[2025-01-29] MEDS ORDERED: GALC120S (18:19)
[2025-01-29] MEDS ORDERED: CYCL-707 (18:19)
[2025-01-29] MEDS ORDERED: HYDR-3363 (18:19)
[2025-01-29] MEDS ORDERED: SUMA25TA3 (18:19)
[2025-01-29 19:05] LABS: KETONE, URINE AUTO RFX NEGATIVE (NEGATIVE); LEUKOCYTE ESTERASE UR AUTO RFX NEGATIVE (NEGATIVE); MUCUS, URINE RFX SMALL (NEGATIVE); NITRITE, URINE AUTO RFX NEGATIVE (NEGATIVE); RBC, URINE AUTO RFX 0 /HPF (0-3); SQUAM EPITHELIAL CELL UR AURFX 2 /HPF (0-6); WBC, URINE AUTO RFX 0 /HPF (0-3)
[2025-01-29 19:53] LABS: BASO # 0.1 10^3/uL (0.0-0.2); BASO % 0.7 % (0.0-1.0); EOS # 0.3 10^3/uL (0.0-0.5); EOS % 2.6 % (0.0-3.0); HEMATOCRIT 39.5 % (36.0-47.0); HEMOGLOBIN 13.4 g/dl (12.0-15.5); LYMPH # 3.8 10^3/uL (1.5-5.0); LYMPH % 39.3 % (24.0-44.0); MEAN CORPUSCULAR HEMOGLOBIN 30.6 pg (27.0-33.0); MEAN CORPUSCULAR HGB CONC 33.9 g/dl (32.0-36.5); MEAN CORPUSCULAR VOLUME 90.2 fl (80.0-96.0); MONO # 0.7 10^3/uL (0.0-0.8); NEUTROPHILS # 4.9 10^3/uL (1.5-8.5); NEUTROPHILS % 49.9 % (36.0-66.0); PLATELET COUNT, AUTOMATED 297 10^3/uL (150-450); RED BLOOD COUNT 4.38 10^6/uL (4.00-5.40); WHITE BLOOD COUNT 9.8 10^3/uL (4.0-10.0)
[2025-01-29 20:02] LABS: BLOOD UREA NITROGEN 15 MG/DL (9-23); CALCIUM LEVEL 8.9 MG/DL (8.5-10.1); CARBON DIOXIDE LEVEL 25 MMOL/L (20-31); CHLORIDE LEVEL 107 MMOL/L (98-107); CREATININE FOR GFR 0.55 MG/DL (0.55-1.30); GLOMERULAR FILTRATION RATE > 60.0 (>60); GLUCOSE, FASTING 93 MG/DL (60-100); POTASSIUM SERUM 4.3 MMOL/L (3.5-5.1); SODIUM LEVEL 139 MMOL/L (136-145)
[2025-01-29 20:11] LABS: HCG, SERUM QUALITATIVE NEGATIVE (NEGATIVE)
[2025-01-29] MEDS ORDERED: ISOVUE-370 76% 100ML VIAL As Ordered ONE (21:18)
[2025-01-29] MEDS: ONDANSETRON 4MG 2ML VIAL IV ONE (21:31)
[2025-01-29] MEDS: KETOROLAC 30 MG/ML 1ML VIAL IV ONE (21:31)
[2025-01-29] MEDS: MAALOX 30 ML SUSP *UDC PO ONE (23:17)
[2025-01-29] MEDS: SUCRALFATE SUSP 1GM/10ML UD PO ONE (23:17)
[2025-01-30] VITALS: BP 128/78; TEMP 98.2; O2SAT 98
[2025-01-30] MEDS ORDERED: SUCR1ORA PO (00:01)
[2025-01-30] MEDS ORDERED: PANT40TA29 PO (00:01)
== END 2025-01-30 00:09 | disposition home or self-care (01) ==
LOC: M ED 17:49
DX: K21.9 Gastro-esophageal reflux disease without esophagitis (principal); R10.11 Right upper quadrant pain; M79.7 Fibromyalgia; Z88.0 Allergy status to penicillin; Z88.1 Allergy status to other antibiotic agents; Z88.2 Allergy status to sulfonamides; Z88.8 Allergy status to other drugs, medicaments and biological substances; Z79.2 Long term (current) use of antibiotics; Z79.899 Other long term (current) drug therapy
CPT/HCPCS: 71045; 74177; 80048; 81001; 84703; 85025; 96374; 99284; J1885; J2405; Q9967

== ENCOUNTER 2025-02-27 23:54 | Emergency (ER) | payer OTHER ==
[~2025-02-27] VITALS: Ht 157.5 cm; Wt 65.0 kg
[~2025-02-27 23:54] MED LIST changes: +CYCL-707; +GALC120S; +HYDR-3363; +PANT40TA29 PO; +SUCR1ORA PO; +SUMA25TA3
[2025-02-28] VITALS: BP 148/90; TEMP 98.1; O2SAT 98
== END 2025-02-28 00:51 | disposition left against medical advice (07) ==
LOC: M ED 23:54
DX: Z53.21 Procedure and treatment not carried out due to patient leaving prior to being seen by health care provider (principal)

== ENCOUNTER → 2025-03-25 | Outpatient (CLI) | payer OTHER | LOC: M WHC 13:54 | PROVIDERS: ATTEND Nurse Practitioner Family | DX: Z98.890 Other specified postprocedural states (principal); N64.4 Mastodynia ==

== ENCOUNTER → 2025-05-15 | Outpatient (REF) | payer OTHER ==
[2025-05-15 22:19] LABS: APPEARANCE, URINE HAZY (CLEAR); BACTERIA, URINE AUTO 1+ (NEGATIVE); BILIRUBIN, URINE AUTO NEGATIVE (NEGATIVE); BLOOD, URINE BLOOD NEGATIVE (NEGATIVE); CALCIUM OXALATE CRYSTALS SMALL; GLUCOSE, URINE (UA) AUTO NEGATIVE (NEGATIVE); KETONE, URINE AUTO NEGATIVE (NEGATIVE); LEUKOCYTE ESTERASE, URINE AUTO NEGATIVE (NEGATIVE); MUCUS, URINE SMALL (NEGATIVE); NITRITE, URINE AUTO POSITIVE (NEGATIVE); PROTEIN, URINE AUTO NEGATIVE (NEGATIVE); RBC, URINE AUTO 0 /HPF (0-3); SPECIFIC GRAVITY URINE AUTO 1.025 (1.002-1.035); SQUAMOUS EPITHELIAL CELL UR AU 1 /HPF (0-6); UROBILINOGEN, URINE AUTO 0.2 mg/dL (0.0-2.0); WBC, URINE AUTO 4 /HPF (0-3)
== END ==
LOC: M LAB REF 21:32
PROVIDERS: ATTEND Physician Assistant Medical
DX: N39.0 Urinary tract infection, site not specified (principal)

== ENCOUNTER → 2025-05-29 | Outpatient (CLI) | payer OTHER ==
[~2025-05-29] MED LIST changes: +PROHANCE 279.3MG/ML 15ML VIAL ONE
== END ==
LOC: M PLAIMG 07:54
PROVIDERS: ATTEND Surgery
DX: Z80.3 Family history of malignant neoplasm of breast (principal); Z80.41 Family history of malignant neoplasm of ovary
CPT/HCPCS: 77049; A9576